=== PATIENT | female | born 1985 | race Caucasian/White ===

== ENCOUNTER 2023-07-29 10:40 | Outpatient (REF) | payer OTHER, SELFPAY ==
[2023-07-29 15:25] LABS: Alanine Aminotransferase 34 U/L (0-31); Albumin Level 3.9 g/dL (3.5-5.0); Alkaline Phosphatase 81 U/L (39-117); Aspartate Amino Transferase 33 U/L (5-31); Bilirubin Direct < 0.2 mg/dL (0.0-0.5); Bilirubin Total 0.2 mg/dL (0.0-1.0); Cholesterol 232 mg/dL (<200); HDL Cholesterol 34 mg/dL (>40); Total Protein 7.1 g/dL (6.5-8.0); Triglycerides 516 mg/dL (<150)
[2023-07-29 15:42] LABS: Thyroid Stimulating Hormone 3.87 uIU/mL (0.32-4.0)
== END 2023-07-29 10:41 | disposition home or self-care (01) ==
LOC: HO.CHCLDS 10:40
PROVIDERS: Visit Provider Student in an Organized Health Care Education/Training Program
DX: E03.9 Hypothyroidism, unspecified (principal)
CPT/HCPCS: 36415; 80061; 80076; 84443

== ENCOUNTER 2024-10-05 10:18 | Outpatient (REF) | payer OTHER, SELFPAY ==
--- OUTSIDE RECORDS SUMMARY | 2024-10-05 12:07 | XMS_ITS | Encounter Summary ---
Author Organization [employer] Address [address] [place] [address] Care Team Providers Care Clinical Science Consultant Name Role Phone Chari Rodriguez MD Primary Care Provider [phone] Encounter Details Date Type Department Care Team ([facility] st Contact Info) Description 10/05/2024 10:00 AM EDT Office Visit [facility] MED & PEDS [address] [place] [address] Chari Rodriguez MD [address] [place] [address] Insomnia, unspecified type (Primary Dx); Hypothyroidism, unspecified type Social History Tobacco Use Types Packs/Day Years Used Date Smoking Tobacco: Every Day Cigarettes Smokeless Tobacco: Never Alcohol Use Standard Drinks/Week Comments Never 0 (1 standard drink = 0.6 oz pur e alcohol) Depression Answer Date Recorded Patient Health Questionnaire-9 Score 13 10/05/2024 Patient Health Questionnaire-9 Score 13 10/05/2024 Last PHQ-9: Questionnaire Data Not on file 0 10/05/2024 Housing Stability Answer Date Recorded What is your housing situation today? I have danita tate [address] you li ve. Do you have problems with any of the following? None of the above 2023 Food Insecurity Answer Date Recorded Within the past 12 months, y ou worried that your food would run out before you got money to buy more: Never True 2023 Within the past 12 months,th e food you bought just didn't last and you didn't have enough money to get more: Never True Transportation Answer Date Recorded In the past 12 months, has l ack of transportation kept you from medical appts, meetings, work or from getting things needed for daily living? No 2023 Utilities Answer Date Recorded In the past 12 months, has t he electric, gas, oil or water company threatened to shut off services in your home? No 2023 Depression Answer Date Recorded Patient Health Questionnaire-2 Score 4 10/05/2024 Comments No Sex and Gender Information Value Date Recorded Sex Assigned at Female 05/05/2022 10:20 AM EDT Legal Sex Female 10:20 AM EDT Gender Identity Female 05/05/2022 10:20 AM EDT Sexual Orientation Straight 05/05/2022 10 :20 AM EDT documented as of this encounter Last Filed Vital Signs Vital Sign Reading Time Taken Comments Blood Pressure 124/80 10/05/2024 9:57 AM EDT Pulse 100 10/05/2024 9:57 AM EDT Temperature 36.4 ??C (97.5 ??F) 10/05/2024 9:57 AM ED T Respiratory Rate 20 10/05/2024 9:57 AM EDT Oxygen Saturation 98% 10/05/2024 9:57 AM EDT Inhaled Oxygen Concentration - - Weight 74.7 kg (164 lb 9.6 oz) 10/05/2024 9:57 A M EDT Height 160 cm (5' 3 ) 10/05/2024 9:57 AM EDT Body Mass Index 29.16 10/05/2024 9:57 AM EDT documented in this encounter Progress Notes * Chari Rodriguez MD - 10/05/2024 10:00 AM EDT Subjective Patient ID: Yamini Fitzgerald is a 39 y.o. female who presents for No chief complaint on file.. Insomnia This is a chronic problem. The problem has been gradually improving. Pertinent negatives include noabdominal pain, anorexia, arthralgias, change in bowel habit, chest pain, chills, congestion, coughing, diaphoresis, fatigue, fever, headaches, joint swelling, myalgias, nausea, neck pain or numbness. The symptoms are aggravated by stress. Treatments tried: trazodone. Review of Systems Constitutional: Negative for chills, diaphoresis, fatigue and fever. HENT: Negative for congestion. Respiratory: Negative for cough. Cardiovascular: Negative for chest pain. Gastrointestinal: Negative for abdominal pain, anorexia, change in bowel habit and nausea. Musculoskeletal: Negative for arthralgias, joint swelling, myalgias and neck pain. Neurological: Negative for numbness and headaches. Psychiatric/Behavioral: The patient has insomnia. Objective Physical Exam Constitutional: Appearance: Normal appearance. Cardiovascular: Rate and Rhythm: Normal rate and regular rhythm. Pulses: Normal pulses. Heart sounds: Normal heart sounds. Pulmonary: Effort: Pulmonary effort is normal. Abdominal: General: Abdomen is flat. Neurological: Mental Status: She is alert. Assessment/Plan Diagnoses and all orders for this visit: Insomnia, unspecified type Comments: Melatonin added to the regimen Cont Trazodone Educated about sleep hygiene Hypothyroidism, unspecified type - TSH with Reflex to Free T4; Future Other orders - melatonin 5 MG tablet; Take 1 tablet (5 mg) by mouth at bedtime. documented in this encounter Plan of Treatment Upcoming Encounters Date Type Department Care Team ([facility] st Contact Info) Description 10/26/2024 9:30 AM EDT Clinical Support [facility] MED & PEDS [address] [place] [address] Thania Hawkins RN [address] [place] [address] 12/28/2024 10:00 AM EDT Telemedicine [facility] MED & PEDS [address] [place] [address] Chari Rodriguez MD [address] [place] [address] Scheduled Orders Name Type Priority Associated Diagnoses Orde r Schedule TSH with Reflex to Free T4 Lab Routine Hypothyroidism, unspecified type Expected: 10/05/2024 (Approximate), Expires: 10/05/2025 documented as of this encounter Visit Diagnoses Diagnosis Insomnia, unspecified type- Primary Hypothyroidism, unspecified type documented in this encounter Additional Health Concerns Assessment Noted Time PHQ-9 Depression Total Score: 13 10/05/ 025 9:59 AM EDT documented as of this encounter Care Teams Clinical Science Consultant Relationship Specialty Start Date End Date Chari Rodriguez MD [address] [place] [address] PCP - General Family Medicine 05/19/12 documented as of this encounter
--- OUTSIDE RECORDS SUMMARY | 2024-10-05 12:07 | XMS_ITS | Encounter Summary ---
Author Organization [employer] Address [address] [place] [address] Care Team Providers Care Nurse Ldr Name Role Phone Chari Rodriguez MD Primary Care Provider [phone] Reason for Visit * Reason Onset Date Comments Med Refill 08/16/2024 Encounter Details Date Type Department Care Team ([facility] st Contact Info) Description 08/16/2024 Telephone [facility] MEDICINE [address] [place] [address] Chari Rodriguez MD [address] [place], [place] [id number] Med Refill Social History Tobacco Use Types Packs/Day Years Used Date Smoking Tobacco: Every Day Cigarettes Smokeless Tobacco: Never Alcohol Use Standard Drinks/Week Comments Never 0 (1 standard drink = 0.6 oz pur e alcohol) Depression Answer Date Recorded Patient Health Questionnaire-9 Score 22 06/16/2024 Patient Health Questionnaire-9 Score 22 06/16/2024 Last PHQ-9: Questionnaire Data Not on file 1 08/17/2023 Housing Stability Answer Date Recorded What is [...] Answer Date Recorded Patient Health Questionnaire-2 Score 6 06/16/2024 Comments No Sex and Gender Information Value Date Recorded Sex Assigned at Female 05/05/2022 10:20 AM EDT Legal Sex Female 10:20 AM EDT Gender Identity Female 05/05/2022 10:20 AM EDT Sexual Orientation Straight 05/05/2022 10 :20 AM EDT documented as of this encounter Miscellaneous Notes * Telephone Encounter - Azra Brink - 08/16/2024 1:33 PM EST TC from pt requesting medication refill. Medications needing refill : traMADol (Ultram) 50 MG tablet To be sent to: [facility]/pharmacy [address] [place] [address] documented in this encounter Plan of Treatment Upcoming Encounters Date Type Department Care Team ([facility] st Contact Info) Description 10/26/2024 9:30 AM EDT Clinical Support [facility] MED & PEDS [address] [place] [address] Thania Hawkins RN [address] [place] [address] 12/28/2024 10:00 AM EDT Telemedicine [facility] MED & PEDS [address] [place] [address] Chari Rodriguez MD [address] [place] [address] documented as of this encounter Visit Diagnoses Not on filedocumented in this encounter Additional Health Concerns Assessment Noted Time PHQ-9 Depression Total Score: 22 024 11:04 AM EST documented as of this encounter Care Teams Nurse Ldr Relationship Specialty Start Date End Date Chari Rodriguez MD [address] [place] [id number] PCP - General Family Medicine 05/19/12 documented as of this encounter
--- OUTSIDE RECORDS SUMMARY | 2024-10-05 12:07 | XMS_ITS | Encounter Summary ---
Author Organization [employer] Address [address] [facility] [address] [facility] [address] [place] [address] Care Team Providers Care Dog Groomer Name Role Phone Chari Rodriguez MD Primary Care Provider [phone] Encounter Details Date Type Department Care Team (Late st Contact Info) Description 04/06/2024 Orders Only [facility] MED & PEDS [address] [place] [address] Provider, MD Darron Social History Tobacco Use Types Packs/Day Years Used Date Smoking Tobacco: Every Day Cigarettes Smokeless Tobacco: Never Alcohol Use Standard Drinks/Week Comments Never 0 (1 standard drink = 0.6 oz pur e alcohol) Depression Answer Date Recorded Patient Health Questionnaire-9 Score 22 07/29/2023 Patient Health Questionnaire-9 Score 22 07/29/2023 Last PHQ-9: Questionnaire Data Not on file 0 07/29/2023 Housing Stability Answer Date Recorded What is [...] Date Recorded Patient Health Questionnaire-2 Score 6 07/29/2023 Comments No Sex and Gender Information Value Date Recorded Sex Assigned at Female 05/05/2022 10:20 AM EDT Legal Sex Female 10:20 AM EDT Gender Identity Female 05/05/2022 10:20 AM EDT Sexual Orientation Straight 05/05/2022 10 :20 AM EDT documented as of this encounter Plan of Treatment Upcoming Encounters Date Type Department Care Team (Late st Contact Info) Description 10/26/2024 9:30 AM EDT Clinical Support [facility] MED & PEDS [address] [place] [address] Thania Hawkins RN [address] [place] [address] 12/28/2024 10:00 AM EDT Telemedicine [facility] MED & PEDS [address] [place] [address] Chari Rodriguez MD [address] [place] [address] documented as of this encounter Procedures Procedure Name Priority Date/Time Associated Diagnosis Comments HM PAP/HPV Routine 03/24/2024 12:20 PM EDT documented in this encounter Results * HM PAP/HPV (03/24/2024 12:20 PM EDT) us Historical Provider HEALTH MAINTENANCE Final Result documented in this encounter Visit Diagnoses Not on filedocumented in this encounter Additional Health Concerns Assessment Noted Time PHQ-9 Depression Total Score: 22 024 10:31 AM EST documented as of this encounter Care Teams Dog Groomer Relationship Specialty Start Date End Date Chari Rodriguez MD [address] [place] [address] PCP - General Family Medicine 05/19/12 documented as of this encounter
--- OUTSIDE RECORDS SUMMARY | 2024-10-05 12:08 | XMS_ITS | Clinical Summary ---
Author Organization [employer] Address [address] 7[address] [place] [address] Care Team Providers Care Magician Helper Name Role Phone Chari Rodriguez MD Primary Care Provider [phone] Allergies Active Allergy Reactions Criticality Noted Date Comments Sulfamethoxazole High 07/14/2016 Other reaction(s): Rash Sulfamethoxazole-Trimethoprim Hives,Rash Low 2021 Trimethoprim Rash High 07/14/2016 Medications * This document contains information received from the source organization and may not represent a complete record from that organization. betamethasone valerate (Valisone) 0.1 % ointmentIndica tions:Discoid lupus Apply topically if needed in the morning and at bedtime (dryness). 45 g 2 09/12/19 23 Active Blood Pressure kit Check blood pressure daily 1 kit 11/28/19 23 Active hydroxychloroq uine (Plaquenil) 200 MG tablet TAKE 1 TABLET (200 MG TOTAL) BY MOUTH 2 TIMES A DAY. 05/31/20 23 Active nicotine (Nicoderm, Step 3) 7 MG/24HR patch Place 1 patch on the skin in the morning. 30 patch 3 07/29/19 24 Active DULoxetine (Cymbalta) [address] capsule TAKE 1 CAPSULE BY MOUTH EVERY DAY 90 capsule 2 10/19/19 24 Active levothyroxine (Synthroid, Levoxyl) 50 MCG tabletIndicati ons:Hypothyroi dism, unspecified type TAKE 1 TABLET BY MOUTH EVERY DAY 90 tablet 1 05/25/20 24 Active acyclovir (Zovirax) 5 % ointment APPLY TOPICALLY 6 (SIX) TIMES A DAY. SPACE APPLICATIONS EVERY 3 HOURS. 30 g 3 05/30/20 24 Active SUMAtriptan (Imitrex) 100 MG tablet 06/09/20 24 Active simvastatin (Zocor) 10 MG tablet TAKE 1 TABLET BY MOUTH EVERYDAY AT BEDTIME 90 tablet 3 07/26/19 25 Active DULoxetine (Cymbalta) [address] capsule TAKE 1 CAPSULE BY MOUTH 2 TIMES DAILY. DO NOT CRUSH OR CHEW. 180 capsule 3 07/26/19 25 Active prazosin (Minipress) 2 MG capsule TAKE 1 CAPSULE BY MOUTH EVERYDAY AT BEDTIME 90 capsule 1 07/26/19 25 Active valACYclovir (Valtrex) 1 g tabletIndicati ons:Sore of lower lip TAKE 1 TABLET BY MOUTH TWICE A DAY FOR 10 DAYS 10 tablet 08/19/19 25 Active cyanocobalamin (Vitamin B-12) 1000 MCG tabletIndicati ons:Vitamin B12 deficiency TAKE 1 TABLET BY MOUTH IN THE MORNING DAILY. 90 tablet 11 08/23/19 25 Active traZODone (Desyrel) 50 MG tablet TAKE 1 TABLET BY MOUTH AT BEDTIME 90 tablet 09/13/19 25 Active traMADol (Ultram) 50 MG tabletIndicati ons:Fibromyalg ia Take 1 tablet (50 mg) by mouth every 8 (eight) hours if needed for severe pain for up to 28 days. 84 tablet 09/13/19 25 2024 Active nicotine (Nicoderm, Step 1) 21 MG/24HR patch Place 1 patch on the skin 1 (one) time each day at the same time. 30 patch 09/21/19 25 2025 Active nicotine (Nicoderm, Step 2) 14 MG/24HR patch Place 1 patch on the skin Once per day. 30 patch 09/21/19 25 2025 Active melatonin 5 MG tablet Take 1 tablet (5 mg) by mouth at bedtime. 30 tablet 11 10/06/19 25 2025 Active nicotine (Nicoderm, Step 1) 21 MG/24HR patch Place 1 patch on the skin 1 (one) time each day at the same time. 30 patch 07/29/19 24 2024 Discontinued(R eorder (will not trigger notification to Pharmacy)) nicotine (Nicoderm, Step 2) 14 MG/24HR patch Place 1 patch on the skin in the morning. 30 patch 07/29/19 24 2024 Discontinued(R eorder (will not trigger notification to Pharmacy)) traZODone (Desyrel) 50 MG tablet Take 1 tablet (50 mg) by mouth at bedtime. 30 tablet 2 06/16/20 24 2024 Discontinued traMADol (Ultram) 50 MG tabletIndicati ons:Fibromyalg ia Take 1 tablet (50 mg) by mouth every 8 (eight) hours if needed for severe pain for up to 28 days. 84 tablet 08/16/19 25 2024 Discontinued(R eorder (will not trigger notification to Pharmacy)) Active Problems Problem Noted Date Diagnosed Date Severe recurrent major depression with psychotic features 08/19/2022 Assessment & Plan (12/30/2022 11:36 AM EDT): Presented with significant cognitive deficits: Memory loss recent and distant. Mild passive SI. Differential includes congenital low cognition, substance exposure, sequelae of substance use (marijuana and Ecstasy), hypothyroidism, psychosis. Moderate auditory and visual hallucinations. Chronic pain now on Tramadol. Followed by Rheum but not Neurology. Memory seems to be improved (better mgt of thyroid disorder?). Auditory hallucinations persist. Will increase to Abilify 15 mg daily. For depression and chronic pain, will increase to Duloxetine 30 mg BID. Continue Mirtazapine 45 mg at bedtime. For nightmares, add Prazosin 1 mg at bedtim. F/u with therapist. When agency prescriber becomes available, may transfer care. Meanwhile, F/U with me in 4-6 weeks. She agrees with the plan. Assessment & Plan (08/19/2022 11:12 AM EST): With significant cognitive deficits: Memory loss recent and distant. Mild passive SI. Differential includes congenital low cognition, substance exposure, sequelae of substance use (marijuana and Ecstasy), hypothyroidism, psychosis. Moderate auditory and visual hallucinations. Chronic pain now on Tramadol. Followed by Rheum but not Neurology. At this time she will resume Abilify 10 mg daily, Duloxetine 20 mg BID. Continue Mirtazapine 45 mg at bedtime. Urged to F/u with therapist. Discuss with Dr. Rodriguez whether Neurologist referral would be appropriate. F/U with me in 3-4 weeks. Venous angioma of brain 06/02/2022 Discoid lupus 03/01/2020 Overview (07/13/2023): Last Assessment & Plan: I requested release of medical records including dermatological care and skin biopsy in addition to rheumatological care-last seen in 2019 and records from her doctor of naprapathy pertinent to Plaquenil administration. She also reported televisit with her PCP within couple of weeks and more recent lab work that I request for review and comparison. I explained to her that most of the time patients with discoid lupus have just skin involvement and do not progress to systemic lupus erythematosus (SLE) that as the name suggest involves multiple organ systems including musculoskeletal, cardiovascular, renal, nervous etc. I took the liberty of a new set of lab work to make sure that she does not have signs suggestive for systemic lupus erythematosus Provided she does not have laboratory signs suggestive for SLE at this time I have asked her to return in 6 months. She is free to call with any problems or questions in the interim. Importance of daily sun protection stressed particularly during spring and summer months. Gastroesophageal reflux disease without esophagi tis 11/24/2017 Pain of breast 06/04/2011 Tobacco dependence 06/04/2011 Overview (07/13/2023): Last Assessment & Plan: I have spent at least 3 minutes on encouraging her to work on complete smoking cessation by reducing number of cigarettes smoked daily by 1 cigarette every week and be ready for dealing with cravings by stocking finger size healthy snacks such as small carrots, cucumbers, celery sticks etc. I reviewed with her multiple ill effects of ongoing cigarette smoking including but not limited to increased risk of developing lung cancer, cervical cancer, bladder cancer, stroke and heart attack in addition to multiple cosmetic ill effects. She may try contacting her insurance agency manager versus PCPs office regarding help from cigarette smoking cessation specialist. She could not tolerate mood changes as she attempted to quit recently and would benefit from health it specialist help. Call 6-286-UUZN-NOW that is free service available nationally for people who struggle with cigarette smoking cessation. 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 Resolved Problems Problem Noted Date Diagnosed Date Resolved Date Depressive disorder 07/29/2010 08/19/19 23 Encounters Date Type Department Care Team Description 10/05/2024 10:00 AM EDT Office Visit [facility] [address] [place] [address] Chari Rodriguez MD Insomnia, unspecified type (Primary Dx); Hypothyroidism, unspecified type 10/05/2024 Travel 10/04/2024 Telephone [facility] [address] [place] [address] Chari Rodriguez MD Chart Prep 09/30/2024 Travel 09/30/2024 Telephone [facility] [address] [place] [address] Thania Hawkins, RN airplane tester 09/29/2024 Telephone [facility] [address] [place] [address] Thania Hawkins, RN 09/27/2024 Patient Outreach [facility] [address] [place] [address] Chari Rodriguez MD Pre-visit Planning (Pre visit planning unable to LVM ) 09/19/2024 Refill [facility] [address] [place] [address] Chari Rodriguez MD 09/12/2024 Telephone [facility] [address] [place] [address] Chari Rodriguez MD Med Refill 09/10/2024 Refill [facility] [address] [place] [address] Chari Rodriguez MD Fibromyalgia 09/09/2024 Refill [facility] [address] [place] [address] Chari Rodriguez MD Fibromyalgia 08/20/2024 Refill [facility] [address] [place] [address] Chari Rodriguez MD Vitamin B12 deficiency 08/17/2024 Refill [facility] [address] [place] [address] Chari Rodriguez MD Sore of lower lip 08/16/2024 Telephone [facility] [address] [place] [address] Chari Rodriguez MD Med Refill 08/15/2024 Refill [facility] [address] [place], [place] [phone] Chari Rodriguez MD Fibromyalgia 07/26/2024 Refill [facility] [address] [place] [address] Chari Rodriguez MD 07/25/2024 Refill [facility] [address] [place] [address] Chari Rodriguez MD 07/20/2024 10:30 AM EST Clinical Support [facility] [address] [place] [address] Thania Hawkins, ALON Other chronic pain 07/20/2024 Telephone [facility] [address] [place] [address] Thania Hawkins, ALON 07/20/2024 Travel 07/17/2024 Refill [facility] [address] [place] [address] Chari Rodriguez MD Fibromyalgia from Last 3 Months Immunizations Name Administration Dates Next Due Influenza Injectable Quadriv alant Preservative Free IIV4 MDCK 08/22/2022 Influenza injectable quadrivalent preservative f ree 06/30/2023 Influenza, IIV3, injectable 03/14/2014 Influenza, Injectable, MDCK, preservative free 0 03/22/2024 Pfizer Covid-19 Vaccine 12+ 11/30/2020 Pneumococcal Conjugate PCV 20 03/22/2024 TD (adult), 2 Lf tetanus tox oid, preservative free, adsorbed 09/16/2006,05/22/2005 Tdap 07/29/2023 Social History Tobacco Use Types Packs/Day Years Used Date Smoking Tobacco: Every Day Cigarettes Smokeless Tobacco: Never Tobacco Cessation:Ready to Q uit: Not Asked; Counseling Given: Not Answered Alcohol Use Standard Drinks/Week Comments Never 0 [...] Orientation Straight 05/05/2022 10 :20 AM EDT Last Filed Vital Signs Vital Sign Reading [...] Mass Index 29.16 10/05/2024 9:57 AM EDT Plan of Treatment Upcoming Encounters Date Type Department Care Team (Late st Contact Info) Description 10/26/2024 9:30 AM EDT Clinical Support [facility] [address] [place] [address] Thania Hawkins RN [address] [place] [address] 12/28/2024 10:00 AM EDT Telemedicine [facility] [address] [facility] [place] [address] Chari Rodriguez MD [address] [place] [address] Health Maintenance Due Date Last Done Comments Family Planning (PISQ) 1998 Hepatitis B Vaccines (1 of 3 - 19+ 3-dose series) 2002 03/14/2024 HPV/Cotest 2013 Mammogram 2023 SDOH Screening 07/21/2024 07/21/2023 Depression Monitoring (PHQ-9) 04/06/2025 10/05/2024, 10/05/2024 Tobacco Screening 06/16/2025 06/16/2024 Alcohol/Substance Use Screening 10/05/2025 10/05/2024 Depression Screening 10/05/2025 10/05/2024, 10/06/19 Cervical Cancer Screening 03/24/2027 Pap Smear 03/24/2027 03/24/2024, 02/25/2013 Lipid Panel 07/29/2028 07/29/2023, 10/10/2020 Zoster Vaccines (1 of 2) 2033 DTaP/Tdap/Td Vaccines (2 - Td or Tdap) 07/29/2033 07/29/2023, 09/16/2006, 05/22/2005 RSV Patients and Patients Aged 60 years or older (1 - 1-dose 75+ series) 2058 HIV Screening Completed 09/26/2019 Hepatitis C Screening Completed 09/26/2019 COVID-19 Vaccine Completed 03/22/2024, , 11/30/2020 Influenza Vaccine Completed 03/22/2024, , 08/22/2022, Additional history exists Pneumococcal Vaccine: Pediatrics (0 to 5 Years) and At-Risk Patients (6 to 49) Years) Completed 03/22/2024 HIB Vaccines Aged Out No longer eligi ble based on patient's age to complete this topic HPV Vaccines Aged Out No longer eligi ble based on patient's age to complete this topic Hepatitis A Vaccines Aged Out No long er eligible based on patient's age to complete this topic IPV Vaccines Aged Out No longer eligi ble based on patient's age to complete this topic Meningococcal Vaccine Aged Out No solis mayra eligible based on patient's age to complete this topic RSV under 20 months Aged Out No longe r eligible based on patient's age to complete this topic Rotavirus Vaccines Aged Out No longer eligible based on patient's age to complete this topic Procedures Procedure Name Priority Date/Time Associated Diagnosis Comments POCT FREYA-14 URINE DRUG SCREEN Routine 07/20/2024 10:47 AM EST Other chronic pain HM PAP/HPV Routine 03/24/2024 12:20 PM EDT LIPID PANEL, STANDARD Routine 07/29/2023 10:47 AM EST Hypothyroidism, unspecified type ZZZ HISTORICAL HEPATITIS C ANTIBODY Routine 09/26/2019 12:52 PM EDT ZZZ HISTORICAL HIV AB/AG Routine 09/26/2019 12:52 PM EDT from Last 3 Months or Most Recently Relevant to Health Maintenance Results * POCT FREYA-14 Urine Drug Screen (07/20/2024 10:47 AM EST) Urine Urine specimen obtained by clean catch procedure / Unknown 07/20/2024 10:47 AM EST Narrative Thania Hawkins, ALON - 07/20/2024 10:47 AM EST negative for THC, MOP, OXY, EDWIN, MET, AMP, BZO, BAR, MTD, BUPG, TCA, MDMA, PCP, PPX. Lot# [id number] Exp: 06-11-25 Chari Rodriguez MD POINT OF CARE TEST ENTER/EDIT OR DERABLES Final Result * HM PAP/HPV (03/24/2024 12:20 PM EDT) Historical Provider HEALTH MAINTENANCE Final Result * (ABNORMAL) Lipid Panel, Standard (07/29/2023 10:47 AM EST) Triglycerides 516(H) <150 mg/dL [facility] Comment:Desirable Triglyceri de: less than 150 mg/dLBorderline High Triglyceride 150-199 mg/dLHigh Triglyceride: 200-499 mg/dLVery High Triglyceride: greater than or equal to 5OO mg/dL Cholesterol 232(H) <200 mg/dL [facility] Comment:Desirable Cholestero l: less than 200 mg/dLBorderline High Cholesterol: 200-239 mg/dLHigh Cholesterol: greater than 239 mg/dL LDL Cholesterol Calculated TNP <100 mg/dL [facility] Comment:Unable to calculate the LDL. The formula of Friedwald,Gold, and Mitchel is only valid if the triglycerides areless than 400 mg/dl. HDL Cholesterol 34(L) >40 mg/dL [facility] Comment:Desirable HDL: great er than 40 mg/dL Note: This HDL assay may give artificially low results in patients with liver disease. Blood Venous blood specimen / Unknown 07/29/2023 10:47 AM EST 07/29/2023 2:55 PM EST Chari Rodriguez MD LAB BLOOD ORDERABLES Final Resul t [facility] [address] [place], [place] [phone] * HEPATITIS C ANTIBODY (09/26/2019 12:52 PM EDT) HEPATITIS C ANTIBODY NONREACTIVE NONREACTIVE [facility] Comment: Antibodies to HCV not detected; does not exclude early acute HCV infection. 09/26/2019 12:5 2 PM EDT Aston Kamara MD HISTORICAL/NON ORDERABLE LABS Fi nal Result Performing Organization Address [facility] de Phone Number [facility] [address] * HIV AB/AG (09/26/2019 12:52 PM EDT) [facility] HIV AG/AB NONREACTIVE [facility] Comment: HIV-1 p24 Ag and/or HIV-1/HIV-2 Ab not detected. ?? A test result that is nonreactive does not exclude the possibility of exposure to or infection with HIV-1 and/or HIV-2. Nonreactive results in this assay for individuals with prior exposure to HIV-1 and/or HIV-2 may be due to antigen and antibody levels that are below the limit of detection of this assay. ?? The Van[employer] Document Improvement Specialist HIV Ag/Ab Combo assay result and supplemental assay results should be interpreted in conjunction with the patient's clinical presentation, history and other laboratory results. ??If the results are inconsistent with clinical evidence, additional testing is suggested to confirm the result. 09/26/2019 12:5 2 PM EDT Aston Kamara MD HISTORICAL/NON ORDERABLE LABS Fi nal Result Performing Organization Address [facility] Phone Number [facility] [address] from Last 3 Months or Most Recently Relevant to Health Maintenance Insurance [address] [place] [address] [address] [facility] Care Teams Magician Helper Relationship Specialty Start Date End Date Chari Rodriguez MD [address] [place] [phone] PCP - General Family Medicine 05/19/12
--- OUTSIDE RECORDS SUMMARY | 2024-10-05 12:08 | XMS_ITS | Encounter Summary ---
Author Organization [employer] Address [address] [place] [address] Care Team Providers Care Concrete Rod Buster Name Role Phone Chari Rodriguez MD Primary Care Provider [phone] Encounter Details Date Type Department Care Team (Latest Contact Info) Description 10/05/2024 Travel Social History Tobacco Use Types Packs/Day Years [...] Description 10/26/2024 9:30 AM EDT Clinical Support [facility] [address] [place] [address] Tahnia Hawkins RN [address] [place] [address] 12/28/2024 10:00 AM EDT Telemedicine [facility] [address] [place] [address] Chari Rodriguez MD [address] [place] [address] documented as of this encounter Visit Diagnoses Not on filedocumented in this encounter Additional Health Concerns Assessment Noted Time PHQ-9 Depression Total Score: 13 025 9:59 AM EDT documented as of this encounter Care Teams Concrete Rod Buster Relationship Specialty Start Date End Date Chari Rodriguez MD [address] [place] [phone] PCP - General Family Medicine 05/19/12 documented as of this encounter
--- OUTSIDE RECORDS SUMMARY | 2024-10-05 12:08 | XMS_ITS | Encounter Summary ---
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 I have danitastacie tate [address] [...] encounter Miscellaneous Notes * Telephone Encounter - Thania Hawkins RN - 09/30/2024 10:31 AM EDT TC back to pt. JUMPBASTING MACHINE OPERATOR appt r/s to 10/26/24 @9:30am. documented in this encounter Plan of Treatment Upcoming Encounters Date Type Department Care Team (Late st Contact Info) Description 10/26/2024 9:30 AM EDT Clinical Support [facility] [address] [place] [address] Thania Hawkins RN [address] [place] [address] 12/28/2024 10:00 AM EDT Telemedicine [facility] [address] [place] [address] Chari Rodriguez MD [address] [place] [address] documented as of this encounter Visit Diagnoses Not on filedocumented in this encounter Additional Health Concerns Assessment Noted Time PHQ-9 Depression Total Score: 22 024 11:04 AM EST documented as of this encounter Care Teams Sewer Maintenance Supervisor Relationship Specialty Start Date End Date Chari Rodriguez MD [address] [place] [address] PCP - General Family Medicine 05/19/12 documented as of this encounter
--- OUTSIDE RECORDS SUMMARY | 2024-10-05 12:08 | XMS_ITS | Encounter Summary ---
Author Organization [employer] Address [address] [place] [address] Care Team Providers Care Consulting Services Manager Name Role Phone Chari Rodriguez MD Primary Care Provider [phone] Reason for Visit * Reason Onset Date Comments Med Refill 09/12/2024 Encounter Details Date Type Department Care Team ([facility] st Contact Info) Description 09/12/2024 Telephone [facility] [address] [place] [address] Chari Rodriguez MD [address] [place], [place] [phone] Med Refill Social History Tobacco Use Types [...] encounter Miscellaneous Notes * Telephone Encounter - Leonora Pritchard LPN - 09/13/2024 10:20 AM EDT Medication was filled 3.25 TC from pt requesting medication refill. Medications needing refill : traMADol (Ultram) 50 MG tablet To be sent to: [facility] [address] [place] [address] * Telephone Encounter - Alireza Lynch - 09/12/2024 3:25 PM EDT TC from pt requesting medication refill. Medications needing refill : traMADol (Ultram) 50 MG tablet To be sent to: [facility]pharmacy [address] [place] [address] documented in this encounter Plan of Treatment Upcoming Encounters Date Type Department Care Team ([facility] st Contact Info) Description 10/26/2024 9:30 AM EDT Clinical Support [facility] [address] [place] [address] Thania Hawkins, RN [address] [place] [address] 12/28/2024 10:00 AM EDT Telemedicine [facility] [address] [place] [address] Chari Rodriguez MD [address] [place] [address] documented as of this encounter Visit Diagnoses Diagnosis Fibromyalgia Unspecified myalgia and myositis documented in this encounter Additional Health Concerns Assessment Noted Time PHQ-9 Depression Total Score: 22 024 11:04 AM EST documented as of this encounter Care Teams Consulting Services Manager Relationship Specialty Start Date End Date Chari Rodriguez MD [address] [place] [id number] PCP - General Family Medicine 05/19/12 documented as of this encounter
--- OUTSIDE RECORDS SUMMARY | 2024-10-05 12:08 | XMS_ITS | Encounter Summary ---
Author Organization [employer] Address [address] [place] [address] Care Team Providers Care Leasing Representative Name Role Phone Chari Rodriguez MD Primary Care Provider [phone] Encounter Details Date Type Department Care Team ([facility] Contact Info) Description 09/29/2024 Telephone [facility] [address] [place] [address] Thania Hawkins, RN [address] [place] [address] Social History Tobacco Use Types Packs/Day Years [...] * Telephone Encounter - Azra Brink - 09/30/2024 10:06 AM EDT Tc from pt returning phone call. 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 TC to pt, unable to connect. documented in this encounter Plan of Treatment Upcoming Encounters Date Type Department Care Team (Late st Contact Info) Description 10/26/2024 9:30 AM EDT Clinical Support [facility] [address] [place] [address] Thania Hawkins RN [address] [place] [address] 12/28/2024 10:00 AM EDT Telemedicine [facility] [address] [place] [address] Chari Rodriguez MD [address] [place] [address] documented as of this encounter Visit Diagnoses Not on filedocumented in this encounter Additional Health Concerns Assessment Noted Time PHQ-9 Depression Total Score: 22 06/16/ 024 11:04 AM EST documented as of this encounter Care Teams Leasing Representative Relationship Specialty Start Date End Date Chari Rodriguez MD [address] [place] [address] PCP - General Family Medicine 05/19/12 documented as of this encounter
--- OUTSIDE RECORDS SUMMARY | 2024-10-05 12:08 | XMS_ITS | Encounter Summary ---
Author Organization [employer] Address [address] 7t [place] [address] Care Team Providers Care Banking Officer Name Role Phone Chari Rodriguez MD Primary Care Provider [phone] Reason for Visit * Reason Onset Date Comments Med Refill 02/08/2024 Encounter Details Date Type Department Care Team (Late st Contact Info) Description 02/08/2024 Refill [facility] MED[facility]INE [address] [place] [address] Chari Rodriguez MD [address] [place], [place] [id number] Sore of lower lip Social History Tobacco Use Types Packs/Day Years [...] Description 10/26/2024 9:30 AM EDT Clinical Support [facility] MED & PEDS 505 [place] [address] Thania Hawkins, RN 505 [place] [address] 12/28/2024 10:00 AM EDT Telemedicine [facility] MED & PEDS 505 [place] [address] Chari Rodriguez MD 505 [place] [address] documented as of this encounter Visit Diagnoses Diagnosis Sore of lower lip documented in this encounter Additional Health Concerns Assessment Noted Time PHQ-9 Depression Total Score: 22 024 10:31 AM EST documented as of this encounter Care Teams Banking Officer Relationship Specialty Start Date End Date Chari Rodriguez MD [address] [place] [address] PCP - General Family Medicine 05/19/12 documented as of this encounter
--- OUTSIDE RECORDS SUMMARY | 2024-10-05 12:08 | XMS_ITS | Encounter Summary ---
Author Organization [employer] Address [address] 7[address] [place] [address] Care Team Providers Care Postdoctoral Scientist Name Role Phone Chari Rodriguez MD Primary Care Provider [phone] Reason for Visit * Reason Onset Date Comments Chart Prep 10/04/2024 Encounter Details Date Type Department Care Team ([facility] st Contact Info) Description 10/04/2024 Telephone [facility] MED & PEDS 505 [place] [address] Chari Rodriguez MD 505 [place] [address] Chart Prep Social History Tobacco Use Types Packs/Day Years [...] encounter Miscellaneous Notes * Telephone Encounter - Guerda Moody [place] - 10/04/2024 2:07 PM EDT Chart Prep Labs: done Images: done Vaccines due: yes Referrals: complete Screenings: mammogram Overdue care gaps: SBIRT, SDOH, and PHQ-9 documented in this encounter Plan of Treatment Upcoming Encounters Date Type Department Care Team ([facility] st Contact Info) Description 10/26/2024 9:30 AM EDT Clinical Support [facility] MED & PEDS 505 [place] [address] Thania Hawkins RN 505 [place] [address] 12/28/2024 10:00 AM EDT Telemedicine [facility] MED & PEDS [address] [place] [address] Chari Rodriguez MD 505 [place] [address] documented as of this encounter Visit Diagnoses Not on filedocumented in this encounter Additional Health Concerns Assessment Noted Time PHQ-9 Depression Total Score: 22 024 11:04 AM EST documented as of this encounter Care Teams Postdoctoral Scientist Relationship Specialty Start Date End Date Chari Rodriguez MD [address] [place] [address] PCP - General Family Medicine 05/19/12 documented as of this encounter
--- OUTSIDE RECORDS SUMMARY | 2024-10-05 12:08 | XMS_ITS | Encounter Summary ---
Author Organization [employer] Address [address] 7t [place] [address] Care Team Providers Care Master Plumber Name Role Phone Chari Rodriguez MD Primary Care Provider [phone] Encounter Details Date Type Department Care Team ([facility] Contact Info) Description 10/03/2022 Orders Only [facility] CHC MED & PEDS 505 [place] [address] Obed Jalloh MD 505 [place] [address] Social History Tobacco Use Types Packs/Day Years Used Date Smoking Tobacco: Every Day Cigarettes Smokeless Tobacco: Never Alcohol Use Standard Drinks/Week Comments Never 0 (1 standard drink = 0.6 oz pur e alcohol) Comments Unknown Sex and Gender Information Value Date Recorded Sex Assigned at Female 05/05/2022 10:20 AM EDT Legal Sex Female 10:20 AM EDT Gender Identity Female 05/05/2022 10:20 AM EDT Sexual Orientation Straight 05/05/2022 10 :20 AM EDT COVID-19 Exposure Response Date Recorded In the last 10 days, have yo u been in contact with someone who was confirmed or suspected to have Coronavirus/COVID-19? No / Unsure 09/24/2022 2:00 PM EDT documented as of this encounter Plan of Treatment Upcoming Encounters Date Type Department Care Team ([facility] Contact Info) Description 10/26/2024 9:30 AM EDT Clinical Support [facility] MED & PEDS [address] [place] [address] Thania Hawkins, RN 505 [place] [address] 12/28/2024 10:00 AM EDT Telemedicine [facility] MED & PEDS [address] [place] [address] Chari Rodriguez MD 505 [place] [address] documented as of this encounter Visit Diagnoses Not on filedocumented in this encounter Additional Health Concerns Assessment Noted Time PHQ-9 Depression Total Score: 19 08/19/ 023 10:15 AM EST documented as of this encounter Care Teams Master Plumber Relationship Specialty Start Date End Date Chari Rodriguez MD [address] [place] [address] PCP - General Family Medicine 05/19/12 documented as of this encounter
--- OUTSIDE RECORDS SUMMARY | 2024-10-05 12:08 | XMS_ITS | Encounter Summary ---
Author Organization [employer] Address [address] 7t [place] [address] Care Team Providers Care Ux Visual Designer Name Role Phone Chari Rodriguez MD Primary Care Provider [phone] Encounter Details Date Type Department Care Team (Latest Contact Info) Description 09/30/2024 Travel Social History Tobacco Use Types Packs/Day [...] [facility] MED & PEDS 505 [place] [address] Thania Hawkins, RN 505 [place] [address] 12/28/2024 10:00 AM EDT Telemedicine [facility] MED & PEDS [address] [place] [address] Chari Rodriguez MD 505 [place] [address] documented as of this encounter Visit Diagnoses Not on filedocumented in this encounter Additional Health Concerns Assessment Noted Time PHQ-9 Depression Total Score: 22 024 11:04 AM EST documented as of this encounter Care Teams Ux Visual Designer Relationship Specialty Start Date End Date Chari Rodriguez MD [address] [place] [address] PCP - General Family Medicine 05/19/12 documented as of this encounter
--- OUTSIDE RECORDS SUMMARY | 2024-10-05 12:08 | XMS_ITS | Encounter Summary ---
Author Organization [employer] Address [address] 7[address] [place] [address] Care Team Providers Care Lightning Rod Erector Name Role Phone Chari Rodriguez MD Primary Care Provider [phone] Reason for Visit * Reason Comments Med Refill Encounter Details Date Type Department Care Team (Late st Contact Info) Description 01/25/2024 Refill [facility] [address] [place] [address] Chari Rodriguez MD [address] [place], [place] [phone] Sore of lower lip Social History Tobacco [...] Description 10/26/2024 9:30 AM EDT Clinical Support [facility] MED & PEDS 505 [place] [address] Thania Hawkins, ALON 505 [place] [address] 12/28/2024 10:00 AM EDT Telemedicine [facility] MED & PEDS 505 [place] [address] Chari oRdriguez MD 505 [place] [address] documented as of this encounter Visit Diagnoses Diagnosis Sore of lower lip documented in this encounter Additional Health Concerns Assessment Noted Time PHQ-9 Depression Total Score: 22 024 10:31 AM EST documented as of this encounter Care Teams Lightning Rod Erector Relationship Specialty Start Date End Date Chari Rodriguez MD [address] [place] [address] PCP - General Family Medicine 05/19/12 documented as of this encounter
--- OUTSIDE RECORDS SUMMARY | 2024-10-05 12:08 | XMS_ITS | Encounter Summary ---
Author Organization [employer] Address [address] [facility] 7t [place] [address] Care Team Providers Care Buck Presser Name Role Phone Chari Rodriguez MD Primary Care Provider [phone] Reason for Visit * Reason Comments Med Refill Encounter Details Date Type Department Care Team (Late Contact Info) Description 02/19/2023 Refill [facility] MED & PEDS [address] [place] [address] Chari Rodriguez MD 505 [place] [address] Sore of lower lip Social History Tobacco Use Types Packs/Day Years Used Date Smoking Tobacco: Every Day Cigarettes Smokeless Tobacco: Never Alcohol Use Standard Drinks/Week Comments Never 0 (1 standard drink = 0.6 oz pur e alcohol) Depression Answer Date Recorded Patient Health Questionnaire-9 Score 18 12/30/2022 Depression Answer Date Recorded Patient Health Questionnaire-2 Score 3 12/30/2022 Comments No Sex and Gender Information Value Date Recorded Sex Assigned at Female 05/05/2022 10:20 AM EDT Legal Sex Female 10:20 AM EDT Gender Identity Female 05/05/2022 10:20 AM EDT Sexual Orientation Straight 05/05/2022 10 :20 AM EDT documented as of this encounter Plan of Treatment Upcoming Encounters Date Type Department Care Team (Late Contact Info) Description 10/26/2024 9:30 AM EDT Clinical Support [facility] MED & PEDS [address] [place] [address] Thania Hawkins, RN 505 [place] [address] 12/28/2024 10:00 AM EDT Telemedicine [facility] MED & PEDS [address] [place] [address] Chari Rodriguez MD 505 [place] [address] documented as of this encounter Visit Diagnoses Diagnosis Sore of lower lip documented in this encounter Additional Health Concerns Assessment Noted Time PHQ-9 Depression Total Score: 18 023 10:15 AM EDT documented as of this encounter Care Teams Buck Presser Relationship Specialty Start Date End Date Chari Rodriguez MD [address] [place] [address] PCP - General Family Medicine 05/19/12 documented as of this encounter
--- OUTSIDE RECORDS SUMMARY | 2024-10-05 12:09 | XMS_ITS | Encounter Summary ---
Author Organization [employer] Address [address] [facility] [facility] [address] [facility] [address] 7t [place] [address] Care Team Providers Care Photocopier Technician Name Role Phone Chari Rodriguez MD Primary Care Provider Reason for Visit * Reason Onset Date Comments Med Refill 10/01/2023 Encounter Details Date Type Department Care Team (Late st Contact Info) Description 10/01/2023 Refill [facility] MEDICINE [address] [place] [address] Chari Rodriguez MD [address] [place], [place] [phone] Social History Tobacco Use Types Packs/Day Years Used Date Smoking Tobacco: Every Day Cigarettes Smokeless Tobacco: Never Alcohol Use Standard Drinks/Week Comments Never 0 (1 standard drink = 0.6 oz pur e alcohol) Depression Answer Date Recorded Patient Health Questionnaire-9 Score 07/29/2023 Patient Health Questionnaire-9 Score 22 07/29/2023 [...] Telephone Encounter - Thania Hawkins RN - 10/01/2023 9:27 AM EDT Radiologic Technologist checked 10/01/23. Can you please change pt sig, wouldn't let me and there's 2 different directions * Telephone Encounter - Ibeth Lay - 10/01/2023 8:46 AM EDT TC from pt requesting medication refill. Medications needing refill : traMADol (Ultram) 50 MG tablet To be sent to: [facility]/pharmacy #[id number] - [place] [id number] documented in this encounter Plan of Treatment Upcoming Encounters Date Type Department Care Team ([facility] st Contact Info) Description 10/26/2024 9:30 AM EDT Clinical Support [facility] MED [facility] PEDS 505 [place] [address] Thania Hawkins RN 505 [place] [address] 12/28/2024 10:00 AM EDT Telemedicine [facility] MED [facility] PEDS 505 [place] [address] Chari Rodriguez MD [address] [place] [address] documented as of this encounter Visit Diagnoses Not on filedocumented in this encounter Additional Health Concerns Assessment Noted Time PHQ-9 Depression Total Score: 22 024 10:31 AM EST documented as of this encounter Care Teams Photocopier Technician Relationship Specialty Start Date End Date Chari Rodriguez MD [address] [place] [address] PCP - General Family Medicine 05/19/12 documented as of this encounter
--- OUTSIDE RECORDS SUMMARY | 2024-10-05 12:09 | XMS_ITS | Encounter Summary ---
Author Organization [employer] Address [address] [facility] 7t [place] [address] Care Team Providers Care Registered Nurse Post Partum Name Role Phone Chari Rodriguez MD Primary Care Provider [phone] Reason for Visit * Reason Comments Med Refill Encounter Details Date Type Department Care Team ([facility] st Contact Info) Description 03/08/2024 Refill [facility] MED & PEDS [address] [place] [address] Chari Rodriguez MD 505 [place] [address] Hypothyroidism, unspecified type Social History Tobacco Use [...] Description 10/26/2024 9:30 AM EDT Clinical Support [facility] MED & PEDS [address] [place] [address] Thania Hawkins, RN 505 [place] [address] 12/28/2024 10:00 AM EDT Telemedicine [facility] MED & PEDS 505 [place] [address] Chari oRdriguez MD 505 [place] [address] documented as of this encounter Visit Diagnoses Diagnosis Hypothyroidism, unspecified type documented in this encounter Additional Health Concerns Assessment Noted Time PHQ-9 Depression Total Score: 22 024 10:31 AM EST documented as of this encounter Care Teams Registered Nurse Post Partum Relationship Specialty Start Date End Date Chari Rodriguez MD 230 [place] [address] PCP - General Family Medicine 05/19/12 documented as of this encounter
--- OUTSIDE RECORDS SUMMARY | 2024-10-05 12:09 | XMS_ITS | Encounter Summary ---
Author Organization [employer] Address [address] 7t [place] [address] Care Team Providers Care Acid Purification Equipment Operator Name Role Phone Chari Rodriguez MD Primary Care Provider [phone] Reason for Visit * Reason Onset Date Comments Medication Question 02/10/2024 Encounter Details Date Type Department Care Team ([facility] st Contact Info) Description 02/10/[address] [facility] MEDICINE 230 [place] [address] Chari Rodriguez MD 505 [place], [place] [phone] Medication Question Social History Tobacco Use Types Packs/Day Years [...] encounter Miscellaneous Notes * Telephone Encounter - Wing Juan M RN - 02/11/2024 11:11 AM EDT Please advise on tramadol, 50 mg prescription written on 02/09. Called pt's pharmacy and spoke to Kylah who stated they need a new script to say to take tramadol 3 times a day as that is what the pt reported to be usually taking. * Telephone Encounter - Ector Boland - 02/11/2024 8:38 AM EDT Tc from pt requesting status on message above. Pt is requesting a call from ALON Monteiro in regards to the Medication * Telephone Encounter - Jaret Briones - 02/10/2024 10:45 AM EDT Tc from patient calling in regards to the medication traMADol (Ultram) 50 MG tablet has received message by pharmacy and was told unable to fill pathology transcriptionist was informed by pharmacist it needed to be corrected states has 2 set of directions documented in this encounter Plan of Treatment Upcoming Encounters Date Type Department Care Team (Late st Contact Info) Description 10/26/2024 9:30 AM EDT Clinical Support [facility] MED & PEDS 505 [place] [address] Thania Hawkins RN 505 [place] [address] 12/28/2024 10:00 AM EDT Telemedicine [facility] MED & PEDS 505 [place] [address] Chari Rodriguez MD 505 [place] [address] documented as of this encounter Visit Diagnoses Diagnosis Fibromyalgia Unspecified myalgia and myositis documented in this encounter Additional Health Concerns Assessment Noted Time PHQ-9 Depression Total Score: 22 024 10:31 AM EST documented as of this encounter Care Teams Acid Purification Equipment Operator Relationship Specialty Start Date End Date Chari Rodriguez MD [address] [place] [address] PCP - General Family Medicine 05/19/12 documented as of this encounter
--- OUTSIDE RECORDS SUMMARY | 2024-10-05 12:09 | XMS_ITS | Encounter Summary ---
Author Organization [employer] Address [address] 7t [place] [address] Care Team Providers Care Audit Analyst Name Role Phone Chari Rodriguez MD Primary Care Provider [phone] Reason for Visit * Reason Onset Date Comments Medication Question 04/15/2023 Encounter Details Date Type Department Care Team ([facility] Contact Info) Description 04/15/[address] [facility] CH[facility] MED & PEDS 505 [place] [address] Chari Rodriguez MD 505 [place] [address] Medication Question Social History Tobacco Use Types Packs/Day Years Used Date Smoking Tobacco: Every Day Cigarettes Smokeless Tobacco: Never Alcohol Use Standard Drinks/Week Comments Never 0 (1 standard drink = 0.6 oz pur e alcohol) Depression Answer Date Recorded Patient Health Questionnaire-9 Score 18 12/30/2022 Housing Stability Answer Date Recorded What is your housing situation today? I have danita tate 04/13/[address] you li ve. Do you have problems with any of the following? None of the above 04/13/2023 Food Insecurity Answer Date Recorded Within the past 12 months, y ou worried that your food would run out before you got money to buy more: Never True 04/13/2023 Within the past 12 months,th e food you bought just didn't last and you didn't have enough money to get more: Never True 03/2023 Transportation Answer Date Recorded In the past 12 months, has l ack of transportation kept you from medical appts, meetings, work or from getting things needed for daily living? No 04/13/2023 Utilities Answer Date Recorded In the past 12 months, has t he electric, gas, oil or water company threatened to shut off services in your home? No 04/13/2023 Depression Answer Date Recorded Patient Health Questionnaire-2 Score 3 12/30/2022 Comments No Sex and Gender Information Value Date Recorded Sex Assigned at Female 05/05/2022 10:20 AM EDT Legal Sex Female 10:20 AM EDT Gender Identity Female 05/05/2022 10:20 AM EDT Sexual Orientation Straight 05/05/2022 10 :20 AM EDT documented as of this encounter Miscellaneous Notes * Telephone Encounter - Thania Cope RN - 04/15/2023 11:55 AM EDT TC to pt regarding message below. Ok per PCP to resend Tramadol rx to be filled today. Pt notifed, verbalized understanding. * Telephone Encounter - Angela Gonzales - 04/15/2023 10:26 AM EDT Tc from patient calling in regards to medication tramadol 50 mg. States she has a script due for 04/17/23 but needs script today (04/15/23) due to a in her family and she needs to travel to [facility] by car. documented in this encounter Plan of Treatment Upcoming Encounters Date Type Department Care Team (Late st Contact Info) Description 10/26/2024 9:30 AM EDT Clinical Support [facility] MED & PEDS [address] [place] [address] Thania Hawkins RN 505 [place] [address] 12/28/2024 10:00 AM EDT Telemedicine [facility] MED & PEDS [address] [place] [address] Chari Rodriguez MD [address] [place] [address] documented as of this encounter Visit Diagnoses Diagnosis Other chronic pain documented in this encounter Additional Health Concerns Assessment Noted Time PHQ-9 Depression Total Score: 18 023 10:15 AM EDT documented as of this encounter Care Teams Audit Analyst Relationship Specialty Start Date End Date Chari Rodriguez MD [address] [place] [address] PCP - General Family Medicine 05/19/12 documented as of this encounter
--- OUTSIDE RECORDS SUMMARY | 2024-10-05 12:09 | XMS_ITS | Encounter Summary ---
Author Organization [employer] Address [address] 7t [place] [address] Care Team Providers Care Deboner Name Role Phone Chari Rodrigeuz MD Primary Care Provider [phone] Encounter Details Date Type Department Care Team (Late Contact Info) Description 09/01/2022 Orders Only [facility] CHC MED & PEDS [address] [place] [address] Chari Rodriguez MD 505 [place] [address] Social History Tobacco Use Types Packs/Day Years [...] Description 10/26/2024 9:30 AM EDT Clinical Support [facility] MED & PEDS 505 [place] [address] Thania Hawkins RN 505 [place] [address] 12/28/2024 10:00 AM EDT Telemedicine [facility] CHC MED & PEDS [address] [place] [address] Chari Rodriguez MD [address] [place] [address] documented as of this encounter Visit Diagnoses Not on filedocumented in this encounter Additional Health Concerns Assessment Noted Time PHQ-9 Depression Total Score: 19 023 10:15 AM EST documented as of this encounter Care Teams Deboner Relationship Specialty Start Date End Date Chari Rodriguez MD [address] [place] [address] PCP - General Family Medicine 05/19/12 documented as of this encounter
--- OUTSIDE RECORDS SUMMARY | 2024-10-05 12:09 | XMS_ITS | Encounter Summary ---
Author Organization [employer] Address [address] [place] [address] Care Team Providers Care Dining Services Manager Name Role Phone Chari Rodriguez MD Primary Care Provider [phone] Encounter Details Date Type Department Care Team ([facility] st Contact Info) Description 04/04/2024 Orders Only [facility] CH[facility] MED & PEDS [address] [place] [address] Chari Rodriguez MD 505 [place] [address] Social History Tobacco Use Types Packs/Day Years [...] Description 10/26/2024 9:30 AM EDT Clinical Support [facility] MED & PEDS [address] [place] [address] Thania Hawkins, RN 505 [place] [address] 12/28/2024 10:00 AM EDT Telemedicine [facility] MED & PEDS [address] [place] [address] Chari Rodriguez MD 505 [place] [address] documented as of this encounter Visit Diagnoses Not on filedocumented in this encounter Additional Health Concerns Assessment Noted Time PHQ-9 Depression Total Score: 22 024 10:31 AM EST documented as of this encounter Care Teams Dining Services Manager Relationship Specialty Start Date End Date Chari Rodriguez MD [address] [place] [address] PCP - General Family Medicine 05/19/12 documented as of this encounter
--- OUTSIDE RECORDS SUMMARY | 2024-10-05 12:09 | XMS_ITS | Encounter Summary ---
Author Organization [employer] Address [address] [facility] 7t [place] [address] Care Team Providers Care Scow Captain Name Role Phone Chari Rodriguez MD Primary Care Provider [phone] Reason for Visit * Reason Onset Date Comments Med Refill 09/07/2023 Encounter Details Date Type Department Care Team ([facility] st Contact Info) Description 09/07/2023 Refill [facility] MED & PEDS [address] [place] [address] Chari Rodriguez MD [address] [place] [address] Other chronic pain Social History Tobacco Use Types Packs/Day Years [...] Description 10/26/2024 9:30 AM EDT Clinical Support [facility] MED & PEDS [address] [place] [address] Thania Hawkins, RN 505 [place] [address] 12/28/2024 10:00 AM EDT Telemedicine [facility] MED & PEDS [address] [place] [address] Chari Rodriguez MD [address] [place] [address] documented as of this encounter Visit Diagnoses Diagnosis Other chronic pain documented in this encounter Additional Health Concerns Assessment Noted Time PHQ-9 Depression Total Score: 22 024 10:31 AM EST documented as of this encounter Care Teams Scow Captain Relationship Specialty Start Date End Date Chari Rodriguez MD [address] [place] [address] PCP - General Family Medicine 05/19/12 documented as of this encounter
--- OUTSIDE RECORDS SUMMARY | 2024-10-05 12:09 | XMS_ITS | Data Portability ---
Author Organization [employer] [facility], [place] - [employer] Address [address] [place] [id number] Care Team Providers Care Monument Mason Name Role Phone [facility] OTHER [facility] OTHER Assessment No assessment recorded. Plan of Treatment Reminders Order Date Submit Date Provider Last Modified By Organization Details Last Modified Time Details Appointments None recorded. Lab None recorded. Referral None recorded. Procedures None recorded. Surgeries None recorded. Imaging None recorded. Medication Orders ondansetron 4 mg disintegrat ing tablet 2023 024 Not available 15:45:16 ondansetron 4 mg disintegrat ing tablet 2023 024 [facility]/Pharmacy #[id number], [address] [place], [address], 4 15:45:17 Patient TargetsNo targets recorded. Patient InstructionsNo instructions recorded. Reason for Referral None Reported. Medical Equipment None Reported. Medications Name Sig Start Date Stop Date Status Note LastModified by Organization Details LastModified Time prednisone 10 mg tablet TAKE 5 TABS DAILY FOR 3 DAYS, THEN 4 TABS DAILY FOR 3 DAYS, THEN 3 TABS DAILY FOR 3 DAYS, THEN 2 TABS DAILY FOR 3 DAYS, THEN 1 TAB DAILY FOR 3 DAYS active Not Available Not Available N ot Available nicotine 14 mg/[address] patch [address] 1 PATCH ON THE SKIN IN THE MORNING active Not Available Not Available Not Available valacyclovir 1 gram tablet TAKE 1 TABLET BY MOUTH TWICE A DAY FOR 10 DAYS active Not Available Not Available No t Available prazosin 1 mg capsule TAKE 2 CAPSULES BY MOUTH EVERY NIGHT active Not Available Not Available No t Available meloxicam 15 mg tablet TAKE 1 TABLET BY MOUTH EVERY DAY active Not Available Not Available No t Available sumatriptan 25 mg tablet PLEASE SEE ATTACHED FOR DETAILED DIRECTIONS active Not Available Not Available N ot Available simvastatin 10 mg tablet TAKE 1 TABLET BY MOUTH EVERYDAY AT BEDTIME active Not Available Not Available No t Available cyanocobalam in (vit B-12) 1,000 mcg tablet TAKE 1 TABLET BY MOUTH IN THE MORNING DAILY. active Not Available Not Available No t Available minoxidil 2.5 mg tablet TAKE 1/2 TABLET BY MOUTH ONCE DAILY active Not Available Not Available No t Available tramadol 50 mg tablet TAKE 1 TABLET BY MOUTH EVERY 8 HOURS NEEDED FOR SEVERE PAIN FOR UP TO 28 DAYS active Not Available Not Available No t Available ketorolac 10 mg tablet TAKE 1 TABLET BY MOUTH EVERY 6 HOURS NEEDED FOR MODERATE PAIN FOR UP TO 5 DAYS active Not Available Not Available No t Available methocarbamo l 750 mg tablet TAKE 1 TABLET BY MOUTH 4 TIMES A DAY FOR 10 DAYS active Not Available Not Available Not Available levothyroxin e 50 mcg tablet TAKE 1 TABLET BY MOUTH EVERY DAY active Not Available Not Available No t Available nicotine 21 mg/[address] daily [address]dermal patch PLACE 1 PATCH ON THE SKIN 1 TIME EACH DAY AT THE SAME TIME. active Not Available Not Available N ot Available mirtazapine 45 mg tablet TAKE 1 TABLET BY MOUTH EVERYDAY AT BEDTIME active Not Available Not Available No t Available hydroxychlor oquine 200 mg tablet TAKE 1 TABLET (200 MG TOTAL) BY MOUTH 2 TIMES A DAY. active Not Available Not Available No t Available ondansetron 4 mg disintegrati ng tablet PLACE 1 TABLET BY TRANSLINGUA L ROUTE active Not Available Not Available No t Available prazosin 2 mg capsule TAKE 1 CAPSULE BY MOUTH AT BEDTIME active Not Available Not Available No t Available amoxicillin 875 mg-potassium clavulanate 125 mg tablet TAKE 1 TABLET BY MOUTH TWO TIMES A DAY active Not Available Not Available Not Available nicotine 7 mg/24 hr daily transdermal patch PLACE 1 PATCH ON THE SKIN IN THE MORNING active Not Available Not Available Not Available aripiprazole 15 mg tablet TAKE 1 TABLET BY MOUTH EVERY DAY active Not Available Not Available No t Available duloxetine 20 mg capsule,best yed release TAKE 1 CAPSULE BY MOUTH 2 TIMES DAILY. DO NOT CRUSH OR CHEW. active Not Available Not Available No t Available duloxetine 30 mg capsule,best yed release TAKE 1 CAPSULE BY MOUTH TWICE A DAY active Not Available Not Available No t Available Vitals Date Recorded Respiratory rate Oxygen saturation Oxygen saturation in Arterial blood by Pulse oximetry Heart rate Systolic blood pressure Diastolic blood pressure Provider Name and Address Organization Details Last Updated DateTime 4 16 /min 98 % 98 % 86 /min 138 mm[Hg] 76 mm[Hg] Not Available [facility] - production 4 15:42:55 Social History None recorded. Functional Status None recorded. Mental Status None recorded. Family History Nothing Reported. Medical History No medical history recorded. Gynecological HistoryNo gynecological history recorded. Obstetrics History GPAL:G 0 P 0 0 0 0 Past Encounters Encounter ID Performer Location Encounter Start Date Encounter Closed Date Diagnosis/Indication Diagnosis SNOMED-CT Code Diagnosis ICD10 Code Diagnosis Note [id number] Elisha Valenzuela MD [facility] - [facility] [address] [place] [phone] 12/04/2023 15:42:51 12/04/2023 21:26:19 Nausea 429920903 R11.0 38 year old female with SLE, being evaluated for nausea for the last 2 days. Patient reports having episodes of this in the past, previously resolved with oral antiemetic s. Patient denies vomiting, is able to eat and drink, denies abdominal pain or abnormal stools, fever/chil ls, new headache, and reports a is impossible . Exam notable for normal vital signs. Presentati on consistent with chronic intermitte nt nausea of unclear etiology, no red flags or concern for or impaired PO intake. Zofran administer ed and prescribed . FU outpatient team for long-term management and work up if indicated. I have reviewed and agree with the assessment and plan as documented by the health education coordinator. I provided real-time medical direction for this encounter and was immediatel y available to provide additional phone-base d assistance as needed. We discussed the diagnostic uncertaint y of home visits and associated risks. We discussed the need to seek care urgently/e mergently in the setting of any new or worsening symptoms. Health Concerns Section Related Observation LastModified by Organization Detai ls LastModified Time None Recorded Concern Status LastModified by Organization Details LastModified Time None Recorded Advance Directives Directive None Recorded Payers Encounter Date Sequence Insurance Name Policy Number Policy Martinez Covered Member ID Martinez Member ID Guarantor Name 12/04/2023 1 [facility] - DOS ON OR AFTER 2022 - DUAL ELIGIBLE - ALF OPTIONS AND ONE CARE (MEDICARE REPLACEMENT/AD VANTAGE - HMO) Yamini Ac [id number] Yamini Ac Notes Date Note Type Note Provider Name and Address Organization Details Recorded Time 12/04/2023 text/html HPI: Nurse is calling from [employer] Member has nausea times 2 days, no epi gastric pain , no fever, no vomiting. Member is just looking for an antiemeticNo no h/o nausea / GI issues in the past PMH Venous angio of brain 2021/ GERD/ andre/ smokes/ depression .................. .................. .................. .................. .................. .................. .................. ............... CRC Nurse Triage Notes (Lidia Hawthorne): Comments: CRC transcribed .................. .................. .................. .................. .................. .................. .................. ............... Inspector Balance Truing Note From Yuriy Glass: Dispatched to the call address for a female pt. with nausea wanting to be prescribed an anti-emetic. pt. was found alert and oriented x3 sitting in living room. pt. noted she had been nauseous for 2 days from Lupus and had attempted Pepto-Bismol and other techniques but was still feeling sick. pt. noted no diarrhea no vomiting and that she had still been able to eat and drink. pt. also noted a headache but was normal since being diagnosed with Lupus. pt. noted no allergies to medications and that she had taken zofran before and was looking for a prescription as well as a one time dose now. pt.-vitals on scene. pt. -chest pain -sob -dizziness -abd pain -vomiting -diarrhea -stroke scale findings no chance that the pt. is normal bowel movements no urinary symptoms. [facility] contacted and ordered 4mg zofran PO on time dose and that she would call in a prescription for her at her pharmacy. Pt. advised of red flag warnings and possible side effects of the medication and if she noticed any allergy symptoms to call 911. all times are approxreport completed by oliver glass. .................. .................. .................. .................. .................. .................. .................. ............... Disposition: Fulfilled Elisha Valenzuela MD [address] [facility],[address], [place], [phone], [place] [employer] 12/04/2023 15:57:49 OBGyn Episode No OBEpisode recorded.
--- OUTSIDE RECORDS SUMMARY | 2024-10-05 12:09 | XMS_ITS | Encounter Summary ---
Author Organization [employer] Address [address] [place] [address] Care Team Providers Care Supervisor [employer] Name Role Phone Chari Rodriguez MD Primary Care Provider [phone] Reason for Visit * Reason Onset Date Comments Nurse Triage 06/25/2023 Encounter Details Date Type Department Care Team ([facility] st Contact Info) Description 06/25/2023 Telephone [facility] MEDICINE [address] [place] [address] Chari Rodriguez MD [address] [place], [place] [phone] Nurse Triage Social History Tobacco Use Types Packs/Day Years [...] encounter Miscellaneous Notes * Telephone Encounter - Karen King RN - 06/25/2023 11:16 AM EST called pt to triage, spoke to pt. pt states seen ER at [facility] on 06/25 for left headache that radiatesto her left eye for 4 days. pt states was seen but signed out before the CT scan that was ordered due to how busy it was and fear of aissatou something. pt states the pain calmed down in the ER but still having some dull pain and pressure in the left head and behind the left eye. advised home care: rest, fluids, cool compresses, OTC pain reliever as needed, and call back if worsening or new concerns. given appt tomorrow with [facility] at 9:40 for exam and recheck. pt understands and agrees with plan. insurance verified. Protocol Used: Headache (Adult) Protocol-Based Disposition: See in Office or Video Visit Today or Tomorrow Video visit offer not recorded Positive Triage Question: * Unexplained headache that is present > 24 hours * All higher-acuity triage questions were negative Care Advice Discussed: * Reassurance and Education - Migraine Headache * Reassurance and Education - Muscle Tension Headache * Pain Medicines * Pain Medicines - Extra Notes and Warnings * Pain Medicine for Migraine * Rest for Headache * Cold Pack for Headache * Stretching * Reasons To Call Back - Severe headache persists over 2 hours after pain medicine - Headache lasts over 24 hours despite using a pain medicine - You become worse * Telephone Encounter - Jaret Anselmo - 06/25/2023 9:56 AM EST Patient calling to report ED visit on : Date: 06/24 Hospital: [facility] Seen for: Left eye pain and head Patient advised will forward to team nurse for follow up Symptom: Eye Pain - Not From Injury Outcome: Schedule an urgent appointment (within 4 hours) or talk to a nurse or provider soon Reason: Started within the past 3 days The caller accepted this outcome documented in this encounter Plan of Treatment Upcoming Encounters Date Type Department Care Team ([facility] st Contact Info) Description 10/26/2024 9:30 AM EDT Clinical Support [facility] MED & PEDS [address] [place] [address] Thania Hawkins RN [address] [place] [address] 12/28/2024 10:00 AM EDT Telemedicine [facility] [address] [place] [address] Chari Rodriguez MD [address] [place] [address] documented as of this encounter Visit Diagnoses Not on filedocumented in this encounter Additional Health Concerns Assessment Noted Time PHQ-9 Depression Total Score: 18 12/30/ 023 10:15 AM EDT documented as of this encounter Care Teams Supervisor [employer] Relationship Specialty Start Date End Date Chari Rodriguez MD [address] [place] [address] PCP - General Family Medicine 05/19/12 documented as of this encounter
--- OUTSIDE RECORDS SUMMARY | 2024-10-05 12:09 | XMS_ITS | Encounter Summary ---
Author Organization [employer] Address [address] [place] [address] Care Team Providers Care Machinist Linotype Name Role Phone Chari Rodriguez MD Primary Care Provider [phone] Reason for Visit * Reason Onset Date Comments Med Refill 09/26/2022 Encounter Details Date Type Department Care Team ([facility] st Contact Info) Description 09/26/2022 Refill [facility] MED & PEDS [address] [place] [address] Chari Rodriguez MD [address] [place] [address] Other chronic pain Social History Tobacco Use [...] PM EDT documented as of this encounter Miscellaneous Notes * Telephone Encounter - Angela Gonzales - 09/29/2022 9:54 AM EDT Tc from patient calling on the status of medication tramadol 50 mg. * Telephone Encounter - Yen Calderon - 09/26/2022 2:14 PM EDT Tc from pt requesting med refill for medication traMADol (Ultram) 50 MG tablet. documented in this encounter Plan of Treatment Upcoming Encounters Date Type Department Care Team (Late st Contact Info) Description 10/26/2024 9:30 AM EDT Clinical Support [facility] MED & PEDS [address] [place] [address] Thania Hawkins RN [address] [place] [address] 12/28/2024 10:00 AM EDT Telemedicine [facility] MED & PEDS [address] [place] [address] Chari Rodriguez MD [address] [place] [address] documented as of this encounter Visit Diagnoses Diagnosis Other chronic pain documented in this encounter Additional Health Concerns Assessment Noted Time PHQ-9 Depression Total Score: 19 023 10:15 AM EST documented as of this encounter Care Teams Machinist Linotype Relationship Specialty Start Date End Date Chari Rodriguez MD [address] [place] [address] PCP - General Family Medicine 05/19/12 documented as of this encounter
--- OUTSIDE RECORDS SUMMARY | 2024-10-05 12:09 | XMS_ITS | Encounter Summary ---
Author Organization [employer] Address [address] [facility] [place] [address] Care Team Providers Care Deliverer Food Name Role Phone Chari Rodriguez MD Primary Care Provider [phone] Reason for Visit * Reason Comments Med Refill Encounter Details Date Type Department Care Team ([facility] st Contact Info) Description 10/27/2023 Refill [facility] CHC MED & PEDS [address] [place] [address] Chari Rodriguez MD [address] [place] [address] Fibromyalgia; Sore of lower lip Social History Tobacco [...] Description 10/26/2024 9:30 AM EDT Clinical Support [facility] MED & PEDS [address] [place] [address] Thania Hawkins, RN [address] [place] [address] 12/28/2024 10:00 AM EDT Telemedicine [facility] MED & PED[facility] [address] [place] [address] Chari Rodriguez MD [address] [place] [address] documented as of this encounter Visit Diagnoses Diagnosis Fibromyalgia Unspecified myalgia and myositis Sore of lower lip documented in this encounter Additional Health Concerns Assessment Noted Time PHQ-9 Depression Total Score: 22 024 10:31 AM EST documented as of this encounter Care Teams Deliverer Food Relationship Specialty Start Date End Date Chari Rodriguez MD [address] [place] [address] PCP - General Family Medicine 05/19/12 documented as of this encounter
--- OUTSIDE RECORDS SUMMARY | 2024-10-05 12:09 | XMS_ITS | Encounter Summary ---
Author Organization [employer] Address [address] [place] [address] Care Team Providers Care Senior Python Developer Name Role Phone Chari Rodriguez MD Primary Care Provider [phone] Reason for Visit * Reason Onset Date Comments Med Refill 10/26/2023 Encounter Details Date Type Department Care Team (Late st Contact Info) Description 10/26/2023 Refill [facility] CH[facility] MED & PEDS [address] [place] [address] Chari Rodriguez MD [address] [place] [address] Sore of lower lip; Fibromyalgia Social History Tobacco Use Types Packs/Day Years [...] Clinical Support [facility] MED & PEDS [address] [place] [address] Thania Hawkins RN [address] [place] [address] 12/28/2024 10:00 AM EDT Telemedicine [facility] MED & PEDS [address] [place] [address] Chari Rodriguez MD [address] [place] [address] documented as of this encounter Visit Diagnoses Diagnosis Sore of lower lip Fibromyalgia Unspecified myalgia and myositis documented in this encounter Additional Health Concerns Assessment Noted Time PHQ-9 Depression Total Score: 22 024 10:31 AM EST documented as of this encounter Care Teams Senior Python Developer Relationship Specialty Start Date End Date Chari Rodriguez MD [address] [place] [address] PCP - General Family Medicine 05/19/12 documented as of this encounter
--- OUTSIDE RECORDS SUMMARY | 2024-10-05 12:09 | XMS_ITS | Encounter Summary ---
Author Organization [employer] Address [address] [facility] [address] [place] [address] Care Team Providers Care Cellophane Casting Machine Repairer Name Role Phone Chari Rodriguez MD Primary Care Provider [phone] Reason for Visit * Reason Onset Date Comments Appointment Request 02/25/2024 Encounter Details Date Type Department Care Team ([facility] st Contact Info) Description 02/25/2024 Telephone [facility] MEDICINE [address] [place] [address] Chari Rodriguez MD [address] [place], [place] [phone] Appointment Request Social History Tobacco Use Types Packs/Day Years [...] encounter Miscellaneous Notes * Telephone Encounter - Bhupendra Sparks - 02/25/2024 9:05 AM EDT Tc from pt requesting to reschedule MANAGER INVENTORY CONTROL visit. Please contact pt at [phone]. documented in this encounter Plan of Treatment Upcoming Encounters Date Type Department Care Team ([facility] st Contact Info) Description 10/26/2024 9:30 AM EDT Clinical Support [facility] MED & PEDS [address] [place] [address] Thania Hawkins, RN [address] [place] [address] 12/28/2024 10:00 AM EDT Telemedicine [facility] MED & PEDS [address] [place] [address] Chari Rodriguez MD [address] [place] [address] documented as of this encounter Visit Diagnoses Not on filedocumented in this encounter Additional Health Concerns Assessment Noted Time PHQ-9 Depression Total Score: 22 024 10:31 AM EST documented as of this encounter Care Teams Cellophane Casting Machine Repairer Relationship Specialty Start Date End Date Chari Rodriguez MD [address] [place] [address] PCP - General Family Medicine 05/19/12 documented as of this encounter
--- OUTSIDE RECORDS SUMMARY | 2024-10-05 12:09 | XMS_ITS | Encounter Summary ---
Author Organization [employer] Address [address] [facility] [address] [place] [address] Care Team Providers Care Coat Joiner Lockstitch Name Role Phone Chari Rodriguez MD Primary Care Provider Reason for Visit * Reason Comments Med Refill Encounter Details Date Type Department Care Team ([facility] st Contact Info) Description 03/09/2024 Refill [facility] CHC MED & PEDS [address] [place] [address] Chari Rodriguez MD [address] [place] [address] Social History Tobacco Use Types Packs/Day Years Used Date Smoking Tobacco: Every Day Cigarettes Smokeless Tobacco: Never Alcohol Use Standard Drinks/Week Comments Never 0 (1 standard drink = 0.6 oz pur e alcohol) Depression Answer Date Recorded Patient Health Questionnaire-9 Score 22 07/29/2023 Patient Health Questionnaire-9 Score 07/29/2023 Last PHQ-9: Questionnaire Data Not on [...] 9:30 AM EDT Clinical Support [facility] MED & PEDS [address] [place] [address] Thania Hawkins, ALON [address] [place] [address] 12/28/2024 10:00 AM EDT Telemedicine [facility] MED & PEDS [address] [place] [address] Chari Rodriguez MD [address] [place] [address] documented as of this encounter Visit Diagnoses Not on filedocumented in this encounter Additional Health Concerns Assessment Noted Time PHQ-9 Depression Total Score: 22 024 10:31 AM EST documented as of this encounter Care Teams Coat Joiner Lockstitch Relationship Specialty Start Date End Date Chari Rodriguez MD [address] [place] [address] PCP - General Family Medicine 05/19/12 documented as of this encounter
[2024-10-05 14:55] LABS: TSH reflex Free T4 3.75 uIU/mL (0.32-4.0)
== END 2024-10-05 10:19 | disposition home or self-care (01) ==
LOC: HO.CHCLDS 10:18
PROVIDERS: PCP Student in an Organized Health Care Education/Training Program; Visit Provider Student in an Organized Health Care Education/Training Program
DX: E03.9 Hypothyroidism, unspecified (principal)
CPT/HCPCS: 36415; 84443

== ENCOUNTER 2025-05-05 11:44 | Outpatient (REF) | payer OTHER, SELFPAY ==
--- OUTSIDE RECORDS SUMMARY | 2025-05-05 12:20 | XMS_ITS | Encounter Summary ---
Author Organization [facility] Address [address] [facility] [facility] [address] [facility] [address] [place] [address] Phone Care Team Providers Care Feather Edger Name Role Phone Chari Rodriguez MD Primary Care Provider [phone] Encounter Details Date Type Department Care Team (Late st Contact Info) Description 05/05/2025 12:20 PM EDT Hospital Encounter [facility] [address] [place] [address] Citlali Rodrigez MD [address] [facility], [address] [place] [address] [email or web address] Social History Tobacco Use Types Packs/Day Years Used Date Smoking Tobacco: Every Day Cigarettes Smokeless Tobacco: Never Alcohol Use Standard Drinks/Week Comments Not Currently 0 (1 standard drink = 0.6 oz pur e alcohol) Education Answer Date Recorded Are you interested in more education? Not on rai e 11/01/2022 Are you concerned about learning? Not on file 11/01/2022 No 11/01/2022 No 11/01/2022 Digital Access Answer Date Recorded No 11/28/2022 No 11/28/2022 Reliable internet access at home? Not on file 11/28/2022 Device with a working camera? Not on file Intimate Partner Violence Answer Date R ecorded Are you denied basic needs s uch as food, clothing, or medical care? No 06/27/2023 In the past 12 months have y ou been in a relationship with a person who hurts, threatens, or tries to control you? No 06/27/2023 Are you denied basic needs s uch as food, clothing, or medical care? No 06/27/2023 In the past 12 months have y ou been in a relationship with a person who hurts, threatens, or tries to control you? No 06/27/2023 Comments Unknown Sex and Gender Information Value Date Recorded Sex Assigned at Female 03/31/2023 12:05 PM EDT Legal Sex Female 12:05 PM EST Gender Identity Female 03/31/2023 12:05 PM EDT Sexual Orientation Straight 03/31/2023 12 :05 PM EDT documented as of this encounter Plan of Treatment Upcoming Encounters Date Type Department Care Team (Late st Contact Info) Description 06/15/2025 2:30 PM EST Office Visit [facility] Rheumatology [address] [place] [address] Citlali Rodrigez MD [address] [place] [address], [address] [place] [address] [email or web address] [email or web address] Results Name Type Priority Associated Diagnoses Date /Time 25-OH vitamin D Lab Routine Vitamin D deficiency, unspecified 05/05/2025 12:51 PM EDT Complement C3 Lab Routine Systemic lupus erythematosus, unspecified SLE type, unspecified organ involvement status 05/05/2025 12:51 PM EDT Complement C4 Lab Routine Systemic lupus erythematosus, unspecified SLE type, unspecified organ involvement status 05/05/2025 12:51 PM EDT Comprehensive metabolic panel Lab Routine Systemic lupus erythematosus, unspecified SLE type, unspecified organ involvement status 05/05/2025 12:51 PM EDT C-Reactive Protein Lab Routine Systemic lupus erythematosus, unspecified SLE type, unspecified organ involvement status 05/05/2025 12:51 PM EDT CBC and differential Lab Routine Systemic lupus erythematosus, unspecified SLE type, unspecified organ involvement status 05/05/2025 12:51 PM EDT Sedimentation rate (ESR) Lab Routine Systemic lupus erythematosus, unspecified SLE type, unspecified organ involvement status 05/05/2025 12:51 PM EDT Uric acid Lab Routine Systemic lupus erythematosus, unspecified SLE type, unspecified organ involvement status 05/05/2025 12:51 PM EDT Double stranded DNA antibodies Lab Routine Systemic lupus erythematosus, unspecified SLE type, unspecified organ involvement status 05/05/2025 12:51 PM EDT CPK (creatine kinase) Lab Routine Systemic lupus erythematosus, unspecified SLE type, unspecified organ involvement status 05/05/2025 12:51 PM EDT TOTAL PROTEIN CREATININE RATIO, RANDOM URINE Lab Routine Systemic lupus erythematosus, unspecified SLE type, unspecified organ involvement status 05/05/2025 12:51 PM EDT Scheduled Orders Name Type Priority Associated Diagnoses Orde r Schedule 25-OH vitamin D Lab Routine Vitamin D deficiency, unspecified As Needed for 1 Occurrences starting 05/05/2025 until 05/05/2025 Complement C3 Lab Routine Systemic lupus erythematosus, unspecified SLE type, unspecified organ involvement status As Needed for 1 Occurrences starting 05/05/2025 until 05/05/2025 Complement C4 Lab Routine Systemic lupus erythematosus, unspecified SLE type, unspecified organ involvement status As Needed for 1 Occurrences starting 05/05/2025 until 05/05/2025 Comprehensive metabolic panel Lab Routine Systemic lupus erythematosus, unspecified SLE type, unspecified organ involvement status As Needed for 1 Occurrences starting 05/05/2025 until 05/05/2025 C-Reactive Protein Lab Routine Systemic lupus erythematosus, unspecified SLE type, unspecified organ involvement status As Needed for 1 Occurrences starting 05/05/2025 until 05/05/2025 CBC and differential Lab Routine Systemic lupus erythematosus, unspecified SLE type, unspecified organ involvement status As Needed for 1 Occurrences starting 05/05/2025 until 05/05/2025 Sedimentation rate (ESR) Lab Routine Systemic lupus erythematosus, unspecified SLE type, unspecified organ involvement status As Needed for 1 Occurrences starting 05/05/2025 until 05/05/2025 Uric acid Lab Routine Systemic lupus erythematosus, unspecified SLE type, unspecified organ involvement status As Needed for 1 Occurrences starting 05/05/2025 until 05/05/2025 Double stranded DNA antibodies Lab Routine Systemic lupus erythematosus, unspecified SLE type, unspecified organ involvement status As Needed for 1 Occurrences starting 05/05/2025 until 05/05/2025 CPK (creatine kinase) Lab Routine Systemic lupus erythematosus, unspecified SLE type, unspecified organ involvement status As Needed for 1 Occurrences starting 05/05/2025 until 05/05/2025 Total protein creatinine ratio, random urine Lab Routine Systemic lupus erythematosus, unspecified SLE type, unspecified organ involvement status As Needed for 1 Occurrences starting 05/05/2025 until 05/05/2025 documented as of this encounter Visit Diagnoses Diagnosis Vitamin D deficiency, unspecified Systemic lupus erythematosus, unspecified SLE type, unspecified organ involvement status documented in this encounter Care Teams Feather Edger Relationship Specialty Start Date End Date Chari Rodriguez MD [address] [place] [id number] PCP - General Family Medicine 07/17/21 documented as of this encounter Additional Source Comments The information contained in this document represents components of the legal health record. It is not the complete legal health record.[facility]
--- OUTSIDE RECORDS SUMMARY | 2025-05-05 13:20 | XMS_ITS | Encounter Summary ---
Author Organization [employer] Address [address] [place] [address] Care Team Providers Care Plant Quality Manager Name Role Phone Chari Rodriguez MD Primary Care Provider [phone] Waqar Leung CNP Primary Care Provider [phone] Reason for Visit * Reason Onset Date Comments Med Refill 08/16/2024 Encounter Details Date Type Department Care Team (Late st Contact Info) Description 08/16/2024 Telephone [facility] MEDICINE [address] [place] [address] Chari Rodriguez MD [address] [place], [place] [phone] Med Refill Social History Tobacco Use Types [...] 50 MG tablet To be sent to: [facility]/pharmacy [address] [place] [address] documented in this encounter Plan of Treatment Upcoming Encounters Date Type Department Care Team ([facility] st Contact Info) Description 05/18/2025 2:00 PM EST Clinical Support [facility] MED & PEDS [address] [place] [address] Thania Hawkins, ALON [address] [place] [address] documented as of this encounter Visit Diagnoses Not on filedocumented in this encounter Additional Health Concerns Assessment Noted Time PHQ-9 Depression Total Score: 22 024 11:04 AM EST documented as of this encounter Care Teams Plant Quality Manager Relationship Specialty Start Date End Date Chari Rodriguez MD [address] [place] [id number] PCP - General Family Medicine 05/19/12 05/03/25 Waqar Leung CNP [address] [place] [id number] PCP - General Family Medicine 05/04/25 documented as of this encounter
--- OUTSIDE RECORDS SUMMARY | 2025-05-05 13:20 | XMS_ITS | Encounter Summary ---
Author Organization [employer] Address [address] [facility] 7 [place] [address] Care Team Providers Care Ict Customer Support Officer Name Role Phone Chari Rodriguez MD Primary Care Provider [phone] Waqar Leung CNP Primary Care Provider [phone] Reason for Visit * Reason Comments Med Refill Encounter Details Date Type Department Care Team ([facility] st Contact Info) Description 10/07/2024 Refill [facility] MED & PEDS [address] [place], [place] [phone] Obed Jalloh MD [address] [place], [place] [phone] Fibromyalgia Social History Tobacco Use Types Packs/Day [...] Upcoming Encounters Date Type Department Care Team ([facility] st Contact Info) Description 05/18/2025 2:00 PM EST Clinical Support [facility] MED & PEDS [address] [place] [address] Thania Hawkins, ALON [address] [place] [address] documented as of this encounter Visit Diagnoses Diagnosis Fibromyalgia Unspecified myalgia and myositis documented in this encounter Additional Health Concerns Assessment Noted Time PHQ-9 Depression Total Score: 13 025 9:59 AM EDT documented as of this encounter Care Teams Ict Customer Support Officer Relationship Specialty Start Date End Date Chari Rodriguez MD [address] [place] [address] PCP - General Family Medicine 05/19/12 05/03/25 Waqar Leung CNP [address] [place] [address] PCP - General Family Medicine 05/04/25 documented as of this encounter
--- OUTSIDE RECORDS SUMMARY | 2025-05-05 13:20 | XMS_ITS | Encounter Summary ---
Author Organization [employer] Address [address] [facility] [address] [place] [address] Care Team Providers Care Cra Officer Name Role Phone Chari Rodriguez MD Primary Care Provider [phone] Waqar Leung CNP Primary Care Provider [phone] Reason for Visit * Reason Onset Date Comments Medication Question 02/10/2024 Encounter Details Date Type Department Care Team (Late st Contact Info) Description 02/10/2024 Telephone [facility] MEDICINE [address] [place] [address] Chari Rodriguez MD [address] [place], [place] [phone] Medication Question Social History Tobacco Use Types [...] pharmacy and was told unable to fill script editor was informed by pharmacist it needed to be corrected states has 2 set of directions documented in this encounter Plan of Treatment Upcoming Encounters Date Type Department Care Team (Late st Contact Info) Description 05/18/2025 2:00 PM EST Clinical Support [facility] MED & PEDS [address] [place] [address] Thania Hawkins, RN [address] [place] [address] documented as of this encounter Visit Diagnoses Diagnosis Fibromyalgia Unspecified myalgia and myositis documented in this encounter Additional Health Concerns Assessment Noted Time PHQ-9 Depression Total Score: 22 024 10:31 AM EST documented as of this encounter Care Teams Cra Officer Relationship Specialty Start Date End Date Chari Rodriguez MD [address] [place] [id number] PCP - General Family Medicine 05/19/12 05/03/25 Waqar Leung CNP [address] [place] [address] PCP - General Family Medicine 05/04/25 documented as of this encounter
--- OUTSIDE RECORDS SUMMARY | 2025-05-05 13:20 | XMS_ITS | Encounter Summary ---
Author Organization [employer] Address [address] [facility] [address] [place] [address] Care Team Providers Care Medical Pathology Teacher Name Role Phone Chari Rodriguez MD Primary Care Provider [phone] Waqar Leung CNP Primary Care Provider [phone] Reason for Visit * Reason Comments Med Refill Encounter Details Date Type Department Care Team (Late st Contact Info) Description 01/25/2024 Refill [facility] MEDICINE [address] [place] [address] Chari Rodriguez MD [address] [place], [place] [phone] Sore of lower lip Social History Tobacco [...] Description 05/18/2025 2:00 PM EST Clinical Support [facility] MED & PEDS [address] [place] [address] Thania Hawkins, ALON [address] [place] [address] documented as of this encounter Visit Diagnoses Diagnosis Sore of lower lip documented in this encounter Additional Health Concerns Assessment Noted Time PHQ-9 Depression Total Score: 22 024 10:31 AM EST documented as of this encounter Care Teams Medical Pathology Teacher Relationship Specialty Start Date End Date Chari Rodriguez MD [address] [place] [address] PCP - General Family Medicine 05/19/12 05/03/25 Waqar Leung CNP [address] [place] [address] PCP - General Family Medicine 05/04/25 documented as of this encounter
--- OUTSIDE RECORDS SUMMARY | 2025-05-05 13:20 | XMS_ITS | Encounter Summary ---
Author Organization [facility] Address [address] [place] [address] Phone Care Team Providers Care Meter Installer And Remover Name Role Phone Chari Rodriguez MD Primary Care Provider [phone] Encounter Details Date Type Department Care Team (Late st Contact Info) Description 09/11/2022 Transcribe Orders [facility] Laboratory [address] [place] [address] Giovanni Day MD [address] [place] [id number] Social History Tobacco Use Types Packs/Day Years Used Date Smoking Tobacco: Every Day Cigarettes Smokeless Tobacco: Never Comments Unknown Sex and Gender Information Value [...] Description 06/15/2025 2:30 PM EST Office Visit [facility] Rheumatology [address] [place] [address] Citlali Rodrigez MD [address] [facility], [address] [place] [address] [email or web address] documented as of this encounter Visit Diagnoses Not on filedocumented in this encounter Care Teams Meter Installer And Remover Relationship Specialty Start Date End Date Chari Rodriguez MD [address] [place] [id number] PCP - General Family Medicine 07/17/21 documented as of this encounter Additional Source Comments The information contained in this document represents components of the legal health record. It is not the complete legal health record.[facility]
--- OUTSIDE RECORDS SUMMARY | 2025-05-05 13:20 | XMS_ITS | Clinical Summary ---
Author Organization [employer] Address 75 [facility] 7t [place] [address] Care Team Providers Care Application Designer Name Role Phone Waqar Leung COMPA Primary Care Provider [phone] Allergies Active Allergy Reactions Criticality Noted Date [...] DAY 90 capsule 2 10/19/19 24 Active acyclovir (Zovirax) 5 % ointment APPLY TOPICALLY 6 (SIX) TIMES A DAY. SPACE APPLICATIONS EVERY 3 HOURS. 30 g 3 05/30/20 24 Active SUMAtriptan (Imitrex) 100 MG tablet 06/09/20 Active simvastatin (Zocor) 10 MG tablet TAKE 1 TABLET BY MOUTH EVERYDAY AT BEDTIME 90 tablet 3 07/26/19 25 Active DULoxetine (Cymbalta) [address] capsule TAKE 1 CAPSULE BY MOUTH 2 TIMES DAILY. DO NOT CRUSH OR CHEW. 180 capsule 3 07/26/19 25 Active cyanocobalamin (Vitamin B-12) 1000 MCG tabletIndicati ons:Vitamin B12 deficiency TAKE 1 TABLET BY MOUTH IN THE MORNING DAILY. 90 tablet 08/23/19 25 Active nicotine (Nicoderm, Step 1) 21 MG/24HR patch Place 1 patch on the skin 1 (one) time each day at the same time. 30 patch 09/21/19 25 2025 Active melatonin 5 MG tablet Take 1 tablet (5 mg) by mouth at bedtime. 30 tablet 10/06/19 25 2025 Active nicotine (Nicoderm, Step 2) 14 MG/24HR patch PLACE 1 PATCH ON THE SKIN ONCE PER DAY. 28 patch 3 10/26/19 25 Active levothyroxine (Synthroid, Levoxyl) 50 MCG tabletIndicati ons:Hypothyroi dism, unspecified type TAKE 1 TABLET BY MOUTH EVERY DAY 90 tablet 1 11/21/19 25 Active prazosin (Minipress) 2 MG capsule TAKE 1 CAPSULE BY MOUTH EVERYDAY AT BEDTIME 90 capsule 1 01/26/20 25 Active naloxone (Narcan) 4 mg/0.1 mL nasal spray Administer 1 spray (4 mg) into affected nostril(s) if needed for opioid reversal. May repeat every 2-3 minutes if needed, alternating nostrils, until medical assistance becomes available. 2 each 2 02/24/20 25 2025 Active traZODone (Desyrel) 50 MG tablet TAKE 1 TABLET BY MOUTH EVERYDAY AT BEDTIME 90 tablet 03/07/20 25 Active traMADol (Ultram) 50 MG tabletIndicati ons:Fibromyalg ia Take 1 tablet (50 mg) by mouth every 8 (eight) hours if needed for severe pain for up to 28 days. 84 tablet 04/13/20 25 2024 Active valACYclovir (Valtrex) 1 g tabletIndicati ons:Sore of lower lip TAKE 1 TABLET BY MOUTH TWICE A DAY FOR 10 DAYS 10 tablet 04/13/20 25 Active traMADol (Ultram) 50 MG tabletIndicati ons:Fibromyalg ia Take 1 tablet (50 mg) by mouth every 8 (eight) hours if needed for severe pain for up to 28 days. Do not start before March 17, 2025. 84 tablet 03/17/20 25 2024 Discontinued(R eorder (will not trigger notification to Pharmacy)) valACYclovir (Valtrex) 1 g tabletIndicati ons:Sore of lower lip TAKE 1 TABLET BY MOUTH TWICE A DAY FOR 10 DAYS 10 tablet 03/16/20 25 2024 Discontinued(R eorder (will not trigger notification to Pharmacy)) Active Problems Problem Noted Date Diagnosed Date Long-term current use of opiate analgesic 2024 Severe recurrent major depre ssion with psychotic features (CMS/HCC) 08/19/2022 Assessment & Plan (12/30/2022 11:36 AM [...] in 3-4 weeks. 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 She also reported [...] effects. She may try contacting her insurance follow up representative versus PCPs office regarding help from cigarette smoking cessation specialist. She could not tolerate mood changes as she attempted to quit recently and would benefit from mortgage loan specialist help. Call 6-501-EKKH-NOW that is free service available nationally for people who struggle with cigarette smoking cessation. 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 Resolved Problems Problem Noted Date Diagnosed Date Resolved Date Depressive disorder 07/29/2010 08/19/19 23 Encounters Date Type Department Care Team Description 04/12/2025 10:45 AM EDT Office Visit [facility] [address] [place] [address] Chari Rodriguez MD Urinary incontinence, unspecified type (Primary Dx); Incontinence of feces, unspecified fecal incontinence type 04/12/2025 Refill [facility] [address] [place] [address] Chari Rodriguez MD Fibromyalgia; Sore of lower lip 04/12/2025 Travel 04/05/2025 Telephone [facility] [address] [place] [address] Chari Rodriguez MD Appointment Request 03/16/2025 Refill [facility] [address] [place] [address] Giovanni Day MD Fibromyalgia; Sore of lower lip 03/05/2025 Refill [facility] [address] [place] [address] Chari Rodriguez MD 02/23/2025 1:30 PM EDT Clinical Support [facility] [address] [place] [address] Thania Hawkins, RN Other chronic pain 02/23/2025 Refill [facility] [address] [place] [address] Thania Hawkins RN 02/23/2025 Travel 02/17/2025 Refill [facility] [address] [place] [address] Chari Rodriguez MD Fibromyalgia; Sore of lower lip from Last 3 Months Immunizations Immunization Administration Dates Next Due Influenza Injectable Quadriv [...] Sign Reading Time Taken Comments Blood Pressure 136/85 04/12/2025 10:29 AM EDT Pulse 92 04/12/2025 10:29 AM EDT Temperature 36.4 C (97.6 F) 04/12/2025 10:29 AM EDT Respiratory Rate 18 04/12/2025 10:29 AM EDT Oxygen Saturation 98% 10/05/2024 9:57 AM EDT Inhaled Oxygen Concentration - - Weight 72.6 kg (160 lb) 04/12/2025 10:29 AM EDT Height 160 cm (5' 3 ) 04/12/2025 10:29 AM EDT Body Mass Index 28.34 04/12/2025 10:29 AM EDT Plan of Treatment Upcoming Encounters Date Type Department Care Team ([facility] st Contact Info) Description 05/18/2025 2:00 PM EST Clinical Support [facility]S [address] [place] [address] Thania Hawkins, ALON [address] [place] [address] Health Maintenance Due Date Last Done Comments Disability Screening 1983 Family Planning (PISQ) 1998 HPV Vaccines (1 - 3-dose series) 1998 Hepatitis B Vaccines (1 of 3 - 19+ 3-dose series) 2002 03/14/2024 Mammogram 2023 SDOH Screening 07/21/2024 07/21/2023 Influenza Vaccine (#1) 2025 , 06/30/2023, 08/22/2022, Additional history exists Depression Monitoring 04/06/2025 10/05/2024, 025 Alcohol/Substance Use Screening 10/05/2025 10/05/2024 Tobacco Screening 04/12/2026 04/12/2025 Lipid Panel 07/29/2028 07/29/2023, 10/10/2020 Cervical Cancer Screening 03/24/2029 HPV/Cotest 03/24/2029 Pap Smear 03/24/2029 03/24/2024, 02/25/2013 Zoster Vaccines (1 of 2) 2033 DTaP/Tdap/Td Vaccines (2 - Td or Tdap) 07/29/2033 07/29/2023, 09/16/2006, 05/22/2005 RSV Patients and Patients Aged 60 years or older (1 - 1-dose 75+ series) 2058 HIV Screening Completed 09/26/2019 Hepatitis C Screening Completed 09/26/2019 COVID-19 Vaccine Completed 03/22/2024, , 11/30/2020 Pneumococcal Vaccine: Pediatrics (0 to 5 Years) and At-Risk Patients (6 to 49) Years Completed 03/22/2024 HIB Vaccines Aged Out No longer eligi ble based on patient's age to complete this topic Hepatitis A Vaccines Aged Out No long er eligible based on patient's age to complete this topic IPV Vaccines Aged Out No longer eligi ble based on patient's age to complete this topic Meningococcal B Vaccine Aged Out No l onger eligible based on patient's age to complete [...] Comments POCT FREYA-14 URINE DRUG SCREEN Routine 02/23/2025 1:33 PM EDT Other chronic pain HM PAP/HPV Routine 03/24/2024 12:20 PM EDT LIPID PANEL, STANDARD Routine 07/29/2023 10:47 AM EST Hypothyroidism, unspecified type ZZZ HISTORICAL HEPATITIS C ANTIBODY Routine 09/26/2019 12:52 PM EDT ZZZ HISTORICAL HIV AB/AG Routine 09/26/2019 12:52 PM EDT from Last 3 Months or Most Recently Relevant to Health Maintenance Results * POCT FREYA-14 Urine Drug Screen (02/23/2025 1:33 PM EDT) THC Negative Negative Cocaine Screen, Urine Negative Negative Opiate Screen, Urine Negative Negative Methamphetamine Screen Urine Negative Negative Amphetamine Screen, Urine Negative Negative Benzodiazepines Screen, Urine Negative Negative Barbiturate Screen, Urine Negative Negative Methadone Screen, Urine Negative Negative Buprenophine Screen, Urine Negative Negative TCA, Urine Negative Negative MDMA Urine Negative Negative ng/mL Oxycodone Screen, Urine Negative Negative Phencyclidine (PCP), Urine Negative Negative Propoxyphene, Urine Negative Negative Fentanyl, Urine Negative Negative Urine Urine specimen obtained by clean catch procedure / Unknown 02/23/2025 1:33 PM EDT Narrative Thania Hawkins RN - 02/23/2025 1:33 PM EDT Internal Pass Control Lot# [id number] Exp: 05-05-26 Chari Rodriguez MD POINT OF CARE TEST ENTER/EDIT OR DERABLES Final Result * HM PAP/HPV (03/24/2024 12:20 PM EDT) Historical Provider HEALTH MAINTENANCE Final Result * (ABNORMAL) Lipid Panel, Standard (07/29/2023 10:47 AM EST) Triglycerides 516(H) <150 mg/dL [facility] Comment:Desirable Triglyceri de: less than 150 mg/dLBorderline High Triglyceride 150-199 mg/dLHigh Triglyceride: 200-499 mg/dLVery High Triglyceride: greater than or equal to 5OO mg/dL Cholesterol 232(H) <200 mg/dL [facility] Comment:Desirable Cholestero l: less than 200 mg/dLBorderline High Cholesterol: 200-239 mg/dLHigh Cholesterol: greater than 239 mg/dL LDL Cholesterol Calculated TNP <100 mg/dL [facility] Comment:Unable to calculate the LDL. The formula of Friedwald,Gold, and Mitchel is only valid if the triglycerides areless than 400 mg/dl. HDL Cholesterol 34(L) >40 mg/dL [facility] Comment:Desirable HDL: great er than 40 mg/dL Note: This HDL assay may give artificially low results in patients with liver disease. Blood Venous blood specimen / Unknown 07/29/2023 10:47 AM EST 07/29/2023 2:55 PM EST Chari Rodriguez MD LAB BLOOD ORDERABLES Final Resul t Performing Organization Address City/[facility] Co de Phone Number [facility] [address] [place] [address] [phone] * HEPATITIS C ANTIBODY (09/26/2019 12:52 PM EDT) HEPATITIS C ANTIBODY NONREACTIVE [facility] Comment: Antibodies to HCV not detected; does not exclude early acute HCV infection. 09/26/2019 12:5 2 PM EDT Aston Kamara MD HISTORICAL/NON ORDERABLE LABS Fi nal Result Performing Organization Address [facility] Phone Number [facility] [address] * HIV AB/AG (09/26/2019 12:52 PM EDT) Pathologist [facility] HIV AG/AB NONREACTIVE NR [facility] Comment: HIV-1 p24 Ag and/or HIV-1/HIV-2 Ab not detected. A test result that is nonreactive does not exclude the possibility of exposure to or infection with HIV-1 and/or HIV-2. Nonreactive results in this assay for individuals with prior exposure to HIV-1 and/or HIV-2 may be due to antigen and antibody levels that are below the limit of detection of this assay. The [facility] Picking Technician HIV Ag/Ab Combo assay result and supplemental assay results should be interpreted in conjunction with the patient's clinical presentation, history and other laboratory results. If the results are inconsistent with clinical evidence, additional testing is suggested to confirm the result. 09/26/2019 12:5 2 PM EDT Aston Kamara MD HISTORICAL/NON ORDERABLE LABS Fi nal Result Performing Organization Address [facility] Co de Phone Number [facility] [address] from Last 3 Months or Most Recently Relevant to Health Maintenance Insurance [facility] ONE CARE < [facility] Care Teams Application Designer Relationship Specialty Start Date End Date Waqar Leung CNP [address] [place] [address] PCP - General Family Medicine 05/04/25
--- OUTSIDE RECORDS SUMMARY | 2025-05-05 13:20 | XMS_ITS | Encounter Summary ---
Author Organization [employer] [facility] Address [address] [place] [address] Phone Care Team Providers Care Economic Consultant Name Role Phone Chari Rodriguez MD Primary Care Provider [phone] Encounter Details Date Type Department Care Team (Late st Contact Info) Description 06/27/2023 Ophth Exam [facility] Emergency Department [address] [place] [address] Nicole Verdugo MD, MPH [address] [place] [address] [email or web address] Social History Tobacco Use Types Packs/Day Years [...] PM EDT documented as of this encounter Functional Status * Calculated C-SSRS Risk Score (Lifetime/Recent) Answer Date of Assessment Author No Risk Indicated 06/27/2023 11:34 AM Imani Giraldo RN * Portal Suicide Severity Rating Scale (Screener/Recent Self-Report) Question Answer Date of Assessment Author 1. Wish to be (Past 1 Month) No 06/27/2023 11:34 AM Magnus Manjarrez RN 2. Non-Specific Active Suicidal Thoughts (Past 1 Month) No 06/27/2023 11:34 AM Magnus Manjarrez RN 6. Suicidal Behavior (Lifetime) No 06/27/2023 11:34 AM Magnus Manjarrez RN documented as of this encounter Plan of Treatment Upcoming Encounters Date Type Department Care Team (Late st Contact Info) Description 06/15/2025 2:30 PM EST Office Visit [facility] [place] [address] Citlali Rodrigez MD [address] [place] [address], [address] [place] [address] [email or web address] documented as of this encounter Visit Diagnoses Not on filedocumented in this encounter Care Teams Economic Consultant Relationship Specialty Start Date End Date Chari Rodriguez MD [address] [place] [address] PCP - General Family Medicine 07/17/21 documented as of this encounter Additional Source Comments The information contained in this document represents components of the legal health record. It is not the complete legal health record.[facility]
--- OUTSIDE RECORDS SUMMARY | 2025-05-05 13:20 | XMS_ITS | Encounter Summary ---
Author Organization [employer] Address 75 [facility] 7t [place] [address] Care Team Providers Care Learning Development Specialist Name Role Phone Chari Rodriguez MD Primary Care Provider [phone] Waqar Leung CNP Primary Care Provider [phone] Reason for Visit * Reason Onset Date Comments Med Refill 02/08/2024 Encounter Details Date Type Department Care Team (Late st Contact Info) Description 02/08/2024 Refill [facility] MEDIC[facility] [address] [place] [address] Chari Rodriguez MD [address] [place], [place] [id number] Sore of lower lip Social History Tobacco [...] Description 05/18/2025 2:00 PM EST Clinical Support [facility] MED & PEDS [address] [place] [address] Thania Hawkins, ALON [address] [place] [address] documented as of this encounter Visit Diagnoses Diagnosis Sore of lower lip documented in this encounter Additional Health Concerns Assessment Noted Time PHQ-9 Depression Total Score: 22 024 10:31 AM EST documented as of this encounter Care Teams Learning Development Specialist Relationship Specialty Start Date End Date Chari Rodriguez MD [address] [place] [address] PCP - General Family Medicine 05/19/12 05/03/25 Waqar Leung CNP [address] [place] [address] PCP - General Family Medicine 05/04/25 documented as of this encounter
--- OUTSIDE RECORDS SUMMARY | 2025-05-05 13:20 | XMS_ITS | Encounter Summary ---
Author Organization [employer] Address 75 [facility] 7t [place] [address] Care Team Providers Care Sql Etl Developer Name Role Phone Chari Rodriguez MD Primary Care Provider [phone] Waqar Leung CNP Primary Care Provider [phone] Reason for Visit * Reason Onset Date Comments Med Refill 09/26/2022 Encounter Details Date Type Department Care Team ([facility] st Contact Info) Description 09/26/[address] [facility] MED & PEDS [address] [place], [place] [phone] Chari Rodriguez MD [address] [place] [address] Other chronic pain Social History Tobacco Use [...] Description 05/18/2025 2:00 PM EST Clinical Support [facility] MED & PED[facility] [address] [place] [address] Thania Hawkins, ALON [address] [place] [address] documented as of this encounter Visit Diagnoses Diagnosis Other chronic pain documented in this encounter Additional Health Concerns Assessment Noted Time PHQ-9 Depression Total Score: 19 023 10:15 AM EST documented as of this encounter Care Teams Sql Etl Developer Relationship Specialty Start Date End Date Chari Rodriguez MD [address] [place] [address] PCP - General Family Medicine 05/19/12 05/03/25 Waqar Leung CNP [address] [place] [address] PCP - General Family Medicine 05/04/25 documented as of this encounter
--- OUTSIDE RECORDS SUMMARY | 2025-05-05 13:20 | XMS_ITS | Encounter Summary ---
Author Organization [employer] Address 75 [facility] 7t [place] [address] Care Team Providers Care Divisional Storekeeper Name Role Phone Chari Rodriguez MD Primary Care Provider [phone] Waqar Leung CNP Primary Care Provider [phone] Reason for Visit * Reason Onset Date Comments Appointment Request 02/25/2024 Encounter Details Date Type Department Care Team (Late st Contact Info) Description 02/25/2024 Telephone [facility] MEDICINE [address] [place] [address] Chari Rodriguez MD [address] [place], [place] [phone] Appointment Request Social History Tobacco Use Types [...] EDT Tc from pt requesting to reschedule EVENING ANCHOR visit. Please contact pt at [phone]. documented in this encounter Plan of Treatment Upcoming Encounters Date Type Department Care Team ([facility] st Contact Info) Description 05/18/2025 2:00 PM EST Clinical Support [facility] [address] [place] [address] Thania Hawkins RN [address] [place] [address] documented as of this encounter Visit Diagnoses Not on filedocumented in this encounter Additional Health Concerns Assessment Noted Time PHQ-9 Depression Total Score: 22 024 10:31 AM EST documented as of this encounter Care Teams Divisional Storekeeper Relationship Specialty Start Date End Date Chari Rodriguez MD [address] [place] [address] PCP - General Family Medicine 05/19/12 05/03/25 Waqar Leung CNP [address] [place] [address] PCP - General Family Medicine 05/04/25 documented as of this encounter
--- OUTSIDE RECORDS SUMMARY | 2025-05-05 13:20 | XMS_ITS | Encounter Summary ---
Author Organization [employer] Address 75 [facility] 7t [place] [address] Care Team Providers Care Blister Pack Operator Name Role Phone Chari Rodriguez MD Primary Care Provider [phone] Waqar Leung CNP Primary Care Provider [phone] Encounter Details Date Type Department Care Team (Late st Contact Info) Description 04/04/2024 Orders Only [facility] [address] [place], [place] [phone] Chari Rodriguez MD [address] [place] [address] Social History Tobacco Use Types Packs/Day Years [...] Description 05/18/2025 2:00 PM EST Clinical Support [facility] [address] [place] [address] Thania Hawkins, ALON [address] [place] [address] documented as of this encounter Visit Diagnoses Not on filedocumented in this encounter Additional Health Concerns Assessment Noted Time PHQ-9 Depression Total Score: 22 024 10:31 AM EST documented as of this encounter Care Teams Blister Pack Operator Relationship Specialty Start Date End Date Chari Rodriguez MD [address] [place] [address] PCP - General Family Medicine 05/19/12 05/03/25 Waqar Leung CNP [address] [place] [address] PCP - General Family Medicine 05/04/25 documented as of this encounter
--- OUTSIDE RECORDS SUMMARY | 2025-05-05 13:20 | XMS_ITS | Encounter Summary ---
Author Organization [employer] Address 75 [facility] 7t [place] [address] Care Team Providers Care Hair Tinter Name Role Phone Chari Rodriguez MD Primary Care Provider Waqar Leung CNP Primary Care Provider [phone] Reason for Visit * Reason Comments Med Refill Encounter Details Date Type Department Care Team (Late st Contact Info) Description 03/09/2024 Refill [facility] MED [facility] PEDS [address] [place], [place] [phone] Chari Rodriguez MD [address] [place], [place] [phone] Social History Tobacco Use Types Packs/Day Years [...] Description 05/18/2025 2:00 PM EST Clinical Support [facility] [address] [place] [address] Thania Hawkins, ALON [address] [place] [address] documented as of this encounter Visit Diagnoses Not on filedocumented in this encounter Additional Health Concerns Assessment Noted Time PHQ-9 Depression Total Score: 22 024 10:31 AM EST documented as of this encounter Care Teams Hair Tinter Relationship Specialty Start Date End Date Chari Rodriguez MD [address] [place] [address] PCP - General Family Medicine 05/19/12 05/03/25 Waqar Leung CNP [address] [place] [address] PCP - General Family Medicine 05/04/25 documented as of this encounter
--- OUTSIDE RECORDS SUMMARY | 2025-05-05 13:20 | XMS_ITS | Encounter Summary ---
Author Organization [employer] [facility] Address [address] [place] [address] Phone Care Team Providers Care Insurance Broker Name Role Phone Chari Rodriguez MD Primary Care Provider [phone] Encounter Details Date Type Department Care Team (Late st Contact Info) Description 06/27/2023 Procedure Pass [facility], [facility] [address] [place] [address] Social History Tobacco Use Types Packs/Day Years [...] 06/27/2023 11:34 AM Imani Giraldo RN * [place] Suicide Severity Rating Scale (Screener/Recent Self-Report) Question [...] Description 06/15/2025 2:30 PM EST Office Visit [facility] Rheumatology [address] [place] [address] Citlali Rodrigez MD [address] [place] [address], [address] [place] [address] documented as of this encounter Visit Diagnoses Not on filedocumented in this encounter Care Teams Insurance Broker Relationship Specialty Start Date End Date Chari Rodriguez MD [address] [place] [address] PCP - General Family Medicine 1/12/22 documented as of this encounter Additional Source Comments The information contained in this document represents components of the legal health record. It is not the complete legal health record.[facility]
--- OUTSIDE RECORDS SUMMARY | 2025-05-05 13:20 | XMS_ITS | Encounter Summary ---
Author Organization [employer] Address 75 [facility] 7 [place] [address] Care Team Providers Care Section Plotter Operator Name Role Phone Chari Rodriguez MD Primary Care Provider [phone] Waqar Leung CNP Primary Care Provider [phone] Encounter Details Date Type Department Care Team ([facility] Contact Info) Description 10/03/2022 Orders Only [facility] MED & PEDS [address] [place], [place] [phone] Obed Jalloh MD [address] [place] [address] Social History Tobacco Use Types Packs/Day Years [...] Upcoming Encounters Date Type Department Care Team ([facility] Contact Info) Description 05/18/2025 2:00 PM EST Clinical Support [facility]S [address] [place] [address] Thania Hawkins, ALON [address] [place] [address] documented as of this encounter Visit Diagnoses Not on filedocumented in this encounter Additional Health Concerns Assessment Noted Time PHQ-9 Depression Total Score: 19 023 10:15 AM EST documented as of this encounter Care Teams Section Plotter Operator Relationship Specialty Start Date End Date Chari Rodriguez MD [address] [place] [address] PCP - General Family Medicine 05/19/12 05/03/25 Waqar Leung CNP [address] [place] [address] PCP - General Family Medicine 05/04/25 documented as of this encounter
--- OUTSIDE RECORDS SUMMARY | 2025-05-05 13:20 | XMS_ITS | Encounter Summary ---
Author Organization [employer] Address 75 [facility] 7t [place] [address] Care Team Providers Care Food Order Delivery Runner Name Role Phone Chari Rodriguez MD Primary Care Provider [phone] Waqar Leung CNP Primary Care Provider [phone] Reason for Visit * Reason Comments Med Refill Encounter Details Date Type Department Care Team (Late st Contact Info) Description 03/08/2024 Refill [facility] CHC MED & PEDS 505 [place], [place] [phone] Chari Rodriguez MD 505 [place], [place] [phone] Hypothyroidism, unspecified type Social History Tobacco Use [...] Upcoming Encounters Date Type Department Care Team ([facility] st Contact Info) Description 05/18/2025 2:00 PM EST Clinical Support [facility] MED & PEDS 505 [place] [address] Thania Hawkins RN 505 [place] [address] documented as of this encounter Visit Diagnoses Diagnosis Hypothyroidism, unspecified type documented in this encounter Additional Health Concerns Assessment Noted Time PHQ-9 Depression Total Score: 22 024 10:31 AM EST documented as of this encounter Care Teams Food Order Delivery Runner Relationship Specialty Start Date End Date Chari Rodriguez MD [address] [place] [address] PCP - General Family Medicine 05/19/12 05/03/25 Waqar Leung CNP 505 [place] [address] PCP - General Family Medicine 05/04/25 documented as of this encounter
--- OUTSIDE RECORDS SUMMARY | 2025-05-05 13:20 | XMS_ITS | Encounter Summary ---
Author Organization [employer] Address 75 [facility] 7t [place] [address] Care Team Providers Care Lockstitch Waistband Setter Name Role Phone Chari Rodriguez MD Primary Care Provider [phone] Waqar Leung CNP Primary Care Provider [phone] Encounter Details Date Type Department Care Team (Late st Contact Info) Description 04/06/2024 Orders Only [facility] CHC MED & PEDS [address] [place] [address] Provider, MD Darron Social History Tobacco Use [...] Upcoming Encounters Date Type Department Care Team ([facility] st Contact Info) Description 05/18/2025 2:00 PM EST Clinical Support [facility] MED & PEDS 505 [place] [address] Thania Hawkins RN 505 [place] [address] documented as of this encounter Procedures Procedure [...] documented as of this encounter Care Teams Lockstitch Waistband Setter Relationship Specialty Start Date End Date Chari Rodriguez MD [address] [place] [address] PCP - General Family Medicine 05/19/12 05/03/25 Waqar Leung CNP 505 [place] [address] PCP - General Family Medicine 05/04/25 documented as of this encounter
--- OUTSIDE RECORDS SUMMARY | 2025-05-05 13:20 | XMS_ITS | Encounter Summary ---
Author Organization [employer] [facility] Address [address] [place] [address] Phone Care Team Providers Care Critical Care Paramedic Name Role Phone Chari Rodriguez MD Primary Care Provider [phone] Encounter Details Date Type Department Care Team (Late st Contact Info) Description 06/27/2023 Procedure Pass [facility] - MRI, [facility] [address] [place] [address] Social History Tobacco Use Types Packs/Day Years [...] 06/27/2023 11:34 AM Imani Giraldo RN * [place] Suicide Severity Rating Scale (Screener/Recent Self-Report) Question [...] Description 06/15/2025 2:30 PM EST Office Visit [facility] Rheumatology [address] [place] [address] Citlali Rodrigez MD [address] [place] [address], [address] [place] [address] documented as of this encounter Visit Diagnoses Not on filedocumented in this encounter Care Teams Critical Care Paramedic Relationship Specialty Start Date End Date Chari Rodriguez MD [address] [place] [address] PCP - General Family Medicine 1/12/22 documented as of this encounter Additional Source Comments The information contained in this document represents components of the legal health record. It is not the complete legal health record.[facility]
--- OUTSIDE RECORDS SUMMARY | 2025-05-05 13:20 | XMS_ITS | Encounter Summary ---
Author Organization [employer] Address 75 [facility] 7t [place] [address] Care Team Providers Care Chemical Equipment Sales Engineer Name Role Phone Chari Rodriguez MD Primary Care Provider [phone] Waqar Leung CNP Primary Care Provider [phone] Reason for Visit * Reason Comments Med Refill Encounter Details Date Type Department Care Team (Late Contact Info) Description 02/19/2023 Refill [facility] CHC MED & PEDS 505 [place], [place] [phone] Chari Rodriguez MD 505 [place] [address] Sore of lower lip Social History Tobacco [...] Department Care Team (Late Contact Info) Description 05/18/2025 2:00 PM EST Clinical Support [facility] CHC MED & PEDS [address] [place] [address] Thania Hawkins, RN 505 [place] [address] documented as of this encounter Visit Diagnoses Diagnosis Sore of lower lip documented in this encounter Additional Health Concerns Assessment Noted Time PHQ-9 Depression Total Score: 18 023 10:15 AM EDT documented as of this encounter Care Teams Chemical Equipment Sales Engineer Relationship Specialty Start Date End Date Chari Rodriguez MD [address] [place] [address] PCP - General Family Medicine 05/19/12 05/03/25 Waqar Leung CNP 505 [place] [address] PCP - General Family Medicine 05/04/25 documented as of this encounter
--- OUTSIDE RECORDS SUMMARY | 2025-05-05 13:20 | XMS_ITS | Encounter Summary ---
Author Organization [employer] Address 75 [facility] 7t [place] [address] Care Team Providers Care Mathematics Faculty Member Name Role Phone Chari Rodriguez MD Primary Care Provider [phone] Waqar Leung CNP Primary Care Provider [phone] Reason for Visit * Reason Onset Date Comments Appointment Request 04/05/2025 Encounter Details Date Type Department Care Team ([facility] st Contact Info) Description 04/05/2025 Telephone [facility] CHC MED & PEDS [address] [place], [place] [phone] Chari Rodriguez MD 505 [place] [address] Appointment Request Social History Tobacco Use Types [...] encounter Miscellaneous Notes * Telephone Encounter - Arben Ramos - 04/05/2025 11:53 AM EDT Tc from pt requesting to r/s sick on site from 04/03. Contact pt at [phone] documented in this encounter Plan of Treatment Upcoming Encounters Date Type Department Care Team ([facility] st Contact Info) Description 05/18/2025 2:00 PM EST Clinical Support [facility] MED & PEDS [address] [place] [address] Thania Hawkins, ALON 505 [place] [address] documented as of this encounter Visit Diagnoses Not on filedocumented in this encounter Additional Health Concerns Assessment Noted Time PHQ-9 Depression Total Score: 13 025 9:59 AM EDT documented as of this encounter Care Teams Mathematics Faculty Member Relationship Specialty Start Date End Date Chari Rodriguez MD [address] [place] [address] PCP - General Family Medicine 05/19/12 05/03/25 Waqar Leung CNP [address] [place] [address] PCP - General Family Medicine 05/04/25 documented as of this encounter
--- OUTSIDE RECORDS SUMMARY | 2025-05-05 13:20 | XMS_ITS | Encounter Summary ---
Author Organization [employer] Address 75 [facility] 7t [place] [address] Care Team Providers Care Machinery Mechanic Name Role Phone Chari Rodriguez MD Primary Care Provider [phone] Waqar Leung CNP Primary Care Provider [phone] Reason for Visit * Reason Onset Date Comments Med Refill 09/12/2024 Encounter Details Date Type Department Care Team (Late st Contact Info) Description 09/12/2024 Telephone [facility] MEDICINE [address] [place] [address] Chari Rodriguez MD 505 [place], [place] [phone] Med Refill Social History Tobacco Use Types [...] 09/13/2024 10:20 AM EDT Medication was filled 3.10.25 TC from pt requesting medication refill. Medications needing refill : traMADol (Ultram) 50 MG tablet To be sent to: [facility] [address] [place] [address] * Telephone Encounter - Alireza Lynch - 09/12/2024 3:25 PM EDT TC from pt requesting medication refill. Medications needing refill : traMADol (Ultram) 50 MG tablet To be sent to: [facility] [place] [address] documented in this encounter Plan of Treatment Upcoming Encounters Date Type Department Care Team ([facility] st Contact Info) Description 05/18/2025 2:00 PM EST Clinical Support [facility] MED & PEDS 505 [place] [address] Thania Hawkins, RN 505 [place] [address] documented as of this encounter Visit Diagnoses Diagnosis Fibromyalgia Unspecified myalgia and myositis documented in this encounter Additional Health Concerns Assessment Noted Time PHQ-9 Depression Total Score: 22 024 11:04 AM EST documented as of this encounter Care Teams Machinery Mechanic Relationship Specialty Start Date End Date Chari Rodriguez MD [address] [place] [address] PCP - General Family Medicine 05/19/12 05/03/25 Waqar Leung CNP 505 [place] [address] PCP - General Family Medicine 05/04/25 documented as of this encounter
--- OUTSIDE RECORDS SUMMARY | 2025-05-05 13:20 | XMS_ITS | Encounter Summary ---
Author Organization [employer] Address 75 [facility] 7t [place] [address] Care Team Providers Care Carpet Technician Name Role Phone Chari Rodriguez MD Primary Care Provider [phone] Waqar Leung CNP Primary Care Provider [phone] Reason for Visit * Reason Onset Date Comments Med Refill 12/16/2024 Encounter Details Date Type Department Care Team ([facility] st Contact Info) Description 12/16/2024 Refill [facility] CHC MED & PEDS 505 [place], [place] [phone] Chari Rodriguez MD 505 [place] [address] Sore of lower lip Social History Tobacco [...] Description 05/18/2025 2:00 PM EST Clinical Support [facility] MED & PEDS 505 [place] [address] Thania Hawkins, ALON 505 [place] [address] documented as of this encounter Visit Diagnoses Diagnosis Sore of lower lip documented in this encounter Additional Health Concerns Assessment Noted Time PHQ-9 Depression Total Score: 13 025 9:59 AM EDT documented as of this encounter Care Teams Carpet Technician Relationship Specialty Start Date End Date Chari Rodriguez MD [address] [place] [address] PCP - General Family Medicine 05/19/12 05/03/25 Waqar Leung CNP 505 [place] [address] PCP - General Family Medicine 05/04/25 documented as of this encounter
--- OUTSIDE RECORDS SUMMARY | 2025-05-05 13:21 | XMS_ITS | Encounter Summary ---
Author Organization [employer] Address 75 [facility] 7t [place] [address] Care Team Providers Care Energy Risk Management Analyst Name Role Phone Chari Rodriguez MD Primary Care Provider Waqar Leung CNP Primary Care Provider [phone] Reason for Visit * Reason Onset Date Comments Nurse Triage 06/25/2023 Encounter Details Date Type Department Care Team (Late st Contact Info) Description 06/25/2023 Telephone [facility] MEDICINE 230 [place] [address] Chari Rodriguez MD 505 [place], [place] [phone] Nurse Triage Social History Tobacco Use Types [...] to pt. pt states seen ER at [facility] on 06/25 for left headache that [...] or new concerns. given appt tomorrow with [facility] at 9:40 for exam and recheck. pt [...] become worse * Telephone Encounter - Jaret Briones - 06/25/2023 9:56 AM EST Patient calling to report ED visit on : Date: 06/24 Hospital: [facility] Seen for: Left [facility] pain and [facility] Description 05/18/2025 2:00 PM EST Clinical Support [facility] CHC MED & PEDS 505 [place] [address] Thania Hawkins RN [address] [place] [address] documented as of this encounter Visit Diagnoses Not on filedocumented in this encounter Additional Health Concerns Assessment Noted Time PHQ-9 Depression Total Score: 18 023 10:15 AM EDT documented as of this encounter Care Teams Energy Risk Management Analyst Relationship Specialty Start Date End Date Chari Rodriguez MD 230 [place] [address] PCP - General Family Medicine 05/19/12 05/03/25 Waqar Leung CNP [address] [place] [address] PCP - General Family Medicine 05/04/25 documented as of this encounter
--- OUTSIDE RECORDS SUMMARY | 2025-05-05 13:21 | XMS_ITS | Encounter Summary ---
Author Organization [facility] Address [address] [facility] [address] [place] [address] Phone Care Team Providers Care Extruder Operator Helper Name Role Phone Chari Rodriguez MD Primary Care Provider [phone] Reason for Visit * Reason Comments Medication Refill Encounter Details Date Type Department Care Team (Late st Contact Info) Description 04/22/2025 Refill [facility] Rheumatology [address] [place] [address] Citlali Rodrigez MD [address] [facility], [address] [place] [address] [email or web address] Medication Refill Social History Tobacco Use Types Packs/Day [...] PM EDT documented as of this encounter Progress Notes * Citlali Rodrigez MD - 04/27/2025 2:39 PM EDT Thanks for the update-awaiting serum vitamin D level * Angelica Pate LPN - 04/27/2025 8:11 AM EDT Patient has been notified * Citlali Rodrigez MD - 04/26/2025 5:23 PM EDT Vitamin D order signed in epic-please make sure not to take vitamin D 50,000 IU for 7 days before getting labs level tested. * Sobia Stewart CMA - 04/26/2025 11:12 AM EDT Patient took her last Vitamin D 50,000 IU last Thursday04/19/25 she believes. Do you want to get a Vitamin D level at her appt 05/04/25? * Magda Turcios - 04/26/2025 9:54 AM EDT Pt called back and LVM, returning call to nurse. * Sobia Stewart CMA - 04/25/2025 11:47 AM EDT Left message for patient to call back * Citlali Rodrigez MD - 2025 12:35 PM EDT Please check when was her last dose of vitamin D 50,000 units taken. * Sobia Stewart CMA - 2025 10:01 AM EDT Rx Care Gap Status - Instructions for Clinical Staff (prescriber discretion applies): > Mismatch review guide > N/a - No action needed Visit Info Last visit: 01/02/2025 Citlali Rodrigez MD - Rheumatology [facility] > Requested f/u: Return in about 4 months (around 05/04/2025) for PLEASE PRINT INFO ON IRON RICHDIET. Upcoming visit: 05/04/2025 Citlali Rodrigez MD - Rheumatology [facility] ACTIONS TAKEN BY Sobia Stewart CMA Vitamins, Minerals, Supplements, OTCs Rx Protocol - ergocalciferol (vitamin D2) Criteria met; renew for up to 12 months. Visit in the past 24 months: Yes Lab Results Component Value Date VITDT 11 (L) 06/22/2024 documented in this encounter Plan of Treatment Upcoming Encounters Date Type Department Care Team (Late st Contact Info) Description 06/15/2025 2:30 PM EST Office Visit [facility] Rheumatology [address] [place] [address] Citlali Rodrigez MD [address] [facility], [address] [place] [address] [email or web address] documented as of this encounter Visit Diagnoses Diagnosis Vitamin D deficiency, unspecified documented in this encounter Care Teams Extruder Operator Helper Relationship Specialty Start Date End Date Chari Rodriguez MD [address] [place] [address] PCP - General Family Medicine 07/17/21 documented as of this encounter Additional Source Comments The information contained in this document represents components of the legal health record. It is not the complete legal health record.[facility]
--- OUTSIDE RECORDS SUMMARY | 2025-05-05 13:21 | XMS_ITS | Encounter Summary ---
Author Organization [employer] Address 75 [facility] 7t [place] [address] Care Team Providers Care Due Diligence Coordinator Name Role Phone Chari Rodriguez MD Primary Care Provider [phone] Waqar Leung CNP Primary Care Provider [phone] Reason for Visit * Reason Onset Date Comments Med Refill 09/07/2023 Encounter Details Date Type Department Care Team ([facility] st Contact Info) Description 09/07/2023 Refill [facility] CHC MED & PEDS [address] [place], [place] [phone] Chari Rodriguez MD 505 [place] [address] Other chronic pain Social History Tobacco Use [...] Description 05/18/2025 2:00 PM EST Clinical Support [facility] CHC MED & PEDS [address] [place] [address] Thania Hawkins, ALON 505 [place] [address] documented as of this encounter Visit Diagnoses Diagnosis Other chronic pain documented in this encounter Additional Health Concerns Assessment Noted Time PHQ-9 Depression Total Score: 22 024 10:31 AM EST documented as of this encounter Care Teams Due Diligence Coordinator Relationship Specialty Start Date End Date Chari Rodriguez MD [address] [place] [address] PCP - General Family Medicine 05/19/12 05/03/25 Waqar Leung CNP 505 [place] [address] PCP - General Family Medicine 05/04/25 documented as of this encounter
--- OUTSIDE RECORDS SUMMARY | 2025-05-05 13:21 | XMS_ITS | Encounter Summary ---
Author Organization [employer] Address 75 [facility] 7t [place] [address] Care Team Providers Care Printed Circuit Board Drafter Name Role Phone Chari Rodriguez MD Primary Care Provider [phone] Waqar Leung CNP Primary Care Provider [phone] Reason for Visit * Reason Onset Date Comments Medication Question 04/15/2023 Encounter Details Date Type Department Care Team ([facility] st Contact Info) Description 04/15/2023 Telephone [facility] CHC MED & PEDS 505 [place], [place] [phone] Chari Rodriguez MD 505 [place], [place] [phone] Medication Question Social History Tobacco Use Types Packs/Day Years Used Date Smoking Tobacco: Every Day Cigarettes Smokeless Tobacco: Never Alcohol Use Standard Drinks/Week Comments Never 0 (1 standard drink = 0.6 oz pur e alcohol) Depression Answer Date Recorded Patient Health Questionnaire-9 Score 18 12/30/2022 Housing Stability Answer Date Recorded What is your housing situation today? I have danitastacie tate 04/13/[address] you [...] family and she needs to travel to [facility] by car. documented in this encounter Plan of Treatment Upcoming Encounters Date Type Department Care Team ([facility] st Contact Info) Description 05/18/2025 2:00 PM EST Clinical Support [facility] MED & PEDS 505 [place] [address] Thania Hawkins RN [address] [place] [address] documented as of this encounter Visit Diagnoses Diagnosis Other chronic pain documented in this encounter Additional Health Concerns Assessment Noted Time PHQ-9 Depression Total Score: 18 023 10:15 AM EDT documented as of this encounter Care Teams Printed Circuit Board Drafter Relationship Specialty Start Date End Date Chari Rodriguez MD [address] [place] [address] PCP - General Family Medicine 05/19/12 05/03/25 Waqar Leung CNP [address] [place] [address] PCP - General Family Medicine 05/04/25 documented as of this encounter
--- OUTSIDE RECORDS SUMMARY | 2025-05-05 13:21 | XMS_ITS | Encounter Summary ---
Author Organization [employer] Address 75 [facility] 7t [place] [address] Care Team Providers Care House Detective Name Role Phone Chari Rodriguez MD Primary Care Provider [phone] Waqar Leung CNP Primary Care Provider [phone] Reason for Visit * Reason Onset Date Comments Med Refill 10/01/2023 Encounter Details Date Type Department Care Team (Late st Contact Info) Description 10/01/2023 Refill [facility] MEDICINE [address] [place] [address] Chari Rodriguez MD 505 [place], [place] [phone] Social History Tobacco Use Types Packs/Day Years [...] Hawkins RN - 10/01/2023 9:27 AM EDT Diversity Specialist checked 10/01/23. Can you please change pt sig, wouldn't let me and there's [address] different directions * Telephone Encounter - Ibeth Lay - 10/01/2023 8:46 AM EDT TC from pt requesting medication refill. Medications needing refill : traMADol (Ultram) 50 MG tablet To be sent to: [facility]/pharmacy #[id number] [address] documented in this encounter Plan of Treatment Upcoming Encounters Date Type Department Care Team ([facility] st Contact Info) Description 05/18/2025 2:00 PM EST Clinical Support [facility] MED & PEDS 505 [place] [address] Thania Hawkins RN 505 [place] [address] documented as of this encounter Visit Diagnoses Not on filedocumented in this encounter Additional Health Concerns Assessment Noted Time PHQ-9 Depression Total Score: 22 024 10:31 AM EST documented as of this encounter Care Teams House Detective Relationship Specialty Start Date End Date Chari Rodriguez MD 230 [place] [address] PCP - General Family Medicine 05/19/12 05/03/25 Waqar Leung CNP 505 [place] [address] PCP - General Family Medicine 05/04/25 documented as of this encounter
--- OUTSIDE RECORDS SUMMARY | 2025-05-05 13:21 | XMS_ITS | Clinical Summary ---
Author Organization [facility] Address [address] [place] [phone] Phone Care Team Providers Care Retail Manager In Training Name Role Phone Chari Rodriguez MD Primary Care Provider [phone] Allergies Active Allergy Reactions Criticality Noted Date Comments Sulfamethoxazole-Trimethoprim Rash Low 2021 Trimethoprim Rash Low 12/16/2021 Medications biotin 10,000 mcg Cap Take by mouth. Activ e ascorbic acid/collagen hydr (COLLAGEN PLUS VITAMIN C ORAL) Take 1,000 mcg by mouth daily. Active levothyroxine (SYNTHROID, LEVOTHROID) 50 MCG tablet Take 50 mcg by mouth daily. 3 Active traMADoL (ULTRAM) 50 mg tablet Take 50 mg by mouth every 8 (eight) hours as needed. 3 Active cyanocobalamin, vitamin B-12, 1000 MCG tablet Take 1,000 mcg by mouth every morning. 3 Active DULoxetine (CYMBALTA) 30 MG capsule Take 1 capsule by mouth 2 (two) times a day. 3 Active prazosin (MINIPRESS) 2 MG capsule Take 2 mg by mouth nightly at bedtime. 3 Active SUMAtriptan (IMITREX) 25 MG tablet Take 25 mg by mouth as needed. 3 Active DULoxetine (CYMBALTA) 20 MG capsule Take 20 mg by mouth 2 (two) times a day. Active simvastatin (ZOCOR) 10 MG tablet Take 10 mg by mouth. 4 Active valACYclovir (VALTREX) 1000 MG tablet Take 1 tablet by mouth 2 (two) times a day. 3 Active traZODone (DESYREL) 50 MG tablet Take 50 mg by mouth nightly at bedtime. 4 Active belimumab (BENLYSTA) 200 mg/mL auto injectorIndicat ions:Systemic lupus erythematosus, unspecified SLE type, unspecified organ involvement status Inject 1 mL (200 mg total) under the skin once a week. 4 mL 11 4 Active empty container MiscIndications :Systemic lupus erythematosus, unspecified SLE type, unspecified organ involvement status,Long-ter m current use of belimumab 1 Box by Miscellaneous route once a week. 1 each 1 4 Active hydroxychloroqu ine (PLAQUENIL) 200 mg tabletIndicatio ns:Systemic lupus erythematosus, unspecified SLE type, unspecified organ involvement status,Keratoco njunctivitis sicca of both eyes not due to Sjogren's syndrome Take 1 tablet (200 mg total) by mouth 2 (two) times a day. 180 tablet 3 5 Active topiramate (TOPAMAX) 100 MG tablet Take 100 mg by mouth daily. 5 Active melatonin 5 mg Tab Take 5 mg by mouth nightly at bedtime. at bedtime. 5 Active ergocalciferol (DRISDOL) 50,000 unit capsuleIndicati ons:Vitamin D deficiency, unspecified TAKE 1 CAPSULE BY MOUTH ONE TIME PER WEEK 12 capsule 5 Active Active Problems Problem Noted Date Diagnosed Date Memory loss due to medical condition 09/30/2024 Assessment & Plan (10/02/2024 10:26 AM EDT): Due to her ongoing and worsening/troubling memory loss I advised her to get formal memory evaluation to direct appropriate intervention reducing the loss Quadriceps weakness 09/30/2024 Weakness of both quadriceps muscles 09/30/2024 Assessment & Plan (10/02/2024 10:27 AM EDT): Use warm packs versus warm shower prior to gentle, regular exercises-palm flat with pictures and detailed instructions printed for home use today. Class 1 obesity due to exces s calories with serious comorbidity and body mass index (BMI) of 30.0 to 30.9 in adult 09/30/2024 Assessment & Plan (01/02/2025 4:33 PM EDT): Congratulations on losing 5 pounds from 170 on 06/22/2024 down to 165 today and keep it off. Continue diligent portion control. Limit concentrated sugars, saturated fats and calories in the diet. Keep well-hydrated. If unable to achieve expected goal consider formal dietary/nutritional support. Assessment & Plan (10/02/2024 10:28 AM EDT): Congratulations on losing 5 pounds from 170 on 06/22/2024 down to 165 today and keep it off. Continue diligent portion control. Limit concentrated sugars, saturated fats and calories in the diet. Keep well-hydrated. If unable to achieve expected goal consider formal dietary/nutritional support. Skin rash 06/22/2024 Assessment & Plan (07/04/2024 4:22 PM EST): Due to Lacy/livedoid pattern of skin lesions on her flanks I took the liberty of getting additional tests to check her for antiphospholipid antibody syndrome. Long-term current use of belimumab 06/22/2024 Assessment & Plan (01/02/2025 4:33 PM EDT): Reviewed with her the need for holding Benlysta (belimumab) injections whenever running fever, feeling sick or taking antibiotics. Avoid sick contacts. Monitor for any signs of injection reactions and infection. Make sure to inform any new BRII GRAHAM, JUSTOWRITER OPERATOR about chronic treatment with Benlysta particularly in emergency situations. Assessment & Plan (10/02/2024 10:24 AM EDT): Reviewed with her the need for holding Benlysta (belimumab) injections whenever running fever, feeling sick or taking antibiotics. Avoid sick contacts. Monitor for any signs of injection reactions and infection. Make sure to inform any new BRII GRAHAM, JUSTOWRITER OPERATOR about chronic treatment with Benlysta particularly in emergency situations. Assessment & Plan (07/04/2024 4:28 PM EST): Instructed to call for 1st dose administration in the office once approved and delivered to her home to make sure that she does not suffer from allergic reaction and knows proper technique of administering and disposing it. Reviewed with her the need for holding Benlysta (belimumab) injections whenever running fever, feeling sick or taking antibiotics. Avoid sick contacts. Monitor for any signs of injection reactions and infection. Make sure to inform any new MD PA, JUSTOWRITER OPERATOR about chronic treatment with Benlysta particularly in emergency situations. On statin therapy 12/10/2023 Assessment & Plan (06/22/2024 12:04 PM EST): Monitor for muscle tenderness, swelling and weakness Assessment & Plan (03/14/2024 9:29 AM EDT): Monitor for muscle tenderness, swelling and weakness Assessment & Plan (12/10/2023 11:35 AM EDT): Monitor for muscle tenderness, swelling and weakness Rotator cuff tendonitis, left 08/27/2023 Assessment & Plan (03/15/2024 8:43 PM EDT): Use warm packs versus warm shower prior to gentle, regular ROM, stretching and muscle strengthening. Examples of appropriate exercises with pictures and detailed instructions printed for home use today. She may benefit from topical creams/gels such as Voltaren, Biofreeze, Arnica versus medicated patches such as Salonpas or IcyHot patch 2-3 times daily and if needed at bedtime. In case symptoms do not improve or worsen may need to get formal PT and/for local steroid injection. Assessment & Plan (08/30/2023 11:28 AM EST): Use warm packs versus warm shower prior to gentle, regular ROM, stretching and muscle strengthening. Examples of appropriate exercises with pictures and detailed instructions printed for home use today. She may benefit from topical creams/gels such as Voltaren, Biofreeze, Arnica versus medicated patches such as Salonpas or IcyHot patch 2-3 times daily and if needed at bedtime. In case symptoms do not improve or worsen may need to get formal PT and/for local steroid injection. 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 Continue close follow-up with neuro-echo vascular technologist. Assessment & Plan (09/30/2024 4:10 PM EDT): Unclear etiology but possible due to chronic left 6 cranial neuropathy versus rare but possible carotid artery dissection versus sarcoidosis, MS, neuromyelitis optica, optic perineuritis. Continue close follow-up with neuro-echo vascular technologist. Assessment & Plan (06/22/2024 12:04 PM EST): Unclear etiology but possible due to chronic left 6 cranial neuropathy versus rare but possible carotid artery dissection versus sarcoidosis, MS, neuromyelitis optica, optic perineuritis. Continue close follow-up with neuro-echo vascular technologist. Assessment & Plan (03/15/2024 8:47 PM EDT): Unclear etiology but possible due to chronic left 6 cranial neuropathy versus rare but possible carotid artery dissection versus sarcoidosis, MS, neuromyelitis optica, optic perineuritis. Continue close follow-up with neuro-echo vascular technologist. Assessment & Plan (12/10/2023 11:28 AM EDT): Unclear etiology and but possible due to chronic left 6 cranial neuropathy versus rare but possible carotid artery dissection versus sarcoidosis, MS, neuromyelitis optica, optic perineuritis. Continue close follow-up with neuro-echo vascular technologist. Assessment & Plan (08/27/2023 1:06 PM EST): Unclear etiology and but possible due to chronic left 6 cranial neuropathy versus rare but possible carotid artery dissection versus sarcoidosis, MS, neuromyelitis optica, optic perineuritis. Continue close follow-up with neuro-echo vascular technologist. Assessment & Plan (07/23/2023 11:37 PM EST): Unclear etiology and but possible due to chronic left 6 cranial neuropathy versus rare but possible carotid artery dissection versus sarcoidosis, MS, neuromyelitis optica, optic perineuritis. Continue close follow-up with neuro-echo vascular technologist. Long-term use of Plaquenil 01/19/2023 Assessment & Plan (01/02/2025 4:32 PM EDT): Encouraged to take carefully with food and use daily sun protection all year- round or at least during spring and summer months versus when traveling to [facility] or [facility]. Follow closely with echo vascular technologist at least every 12 months. Assessment & Plan (10/02/2024 10:23 AM EDT): Encouraged to take carefully with food and use daily sun protection all year- round or at least during spring and summer months versus when traveling to [facility] or [facility]. Follow closely with echo vascular technologist at least every 12 months. Assessment & Plan (06/22/2024 12:04 PM EST): Encouraged to take carefully with food and use daily sun protection all year- round or at least during spring and summer months versus when traveling to [facility] or [facility]. Assessment & Plan (03/14/2024 9:14 AM EDT): Encouraged to take carefully with food and use daily sun protection all year- round or at least during spring and summer months versus when traveling to [facility] or [facility]. Assessment & Plan (08/27/2023 1:05 PM EST): Encouraged to take carefully with food and use daily sun protection all year- round or at least during spring and summer months versus when traveling to [facility] or [facility]. Assessment & Plan (07/23/2023 11:28 AM EST): Encouraged to take carefully with food and use daily sun protection all year- round or at least during spring and summer months versus when traveling to [facility] or [place]. Assessment & Plan (01/27/2023 4:15 PM EDT): Encouraged to take carefully with food and use daily sun protection all year- round or at least during spring and summer months versus when traveling to [facility] or [facility]. Other headache syndrome 01/19/2023 Assessment & Plan (01/02/2025 4:32 PM EDT): Keep well-hydrated. Well-balanced nutritionally diet. Regular relaxation/meditation sessions Work on getting restful sleep. Keep diary of headaches with triggering factors and location, severity length of episode etc. to review with treating physician. Get brain and orbital MRI to check for interval changes and follow-up closely with neurologist and echo vascular technologist as instructed. Assessment & Plan (09/30/2024 4:10 PM EDT): Keep well-hydrated. Well-balanced nutritionally diet. Regular relaxation/meditation sessions Work on getting restful sleep. Keep diary of headaches with triggering factors and location, severity length of episode etc. to review with treating physician. Get brain and orbital MRI to check for interval changes and follow-up closely with neurologist and echo vascular technologist as instructed. Assessment & Plan (06/22/2024 12:04 PM EST): Keep well-hydrated. Well-balanced nutritionally diet. Regular relaxation/meditation sessions Work on getting restful sleep. Keep diary of headaches with triggering factors and location, severity length of episode etc. to review with treating physician. Get brain and orbital MRI to check for interval changes and follow-up closely with neurologist and echo vascular technologist as instructed. Assessment & Plan (03/15/2024 8:47 PM EDT): Keep well-hydrated. Well-balanced nutritionally diet. Regular relaxation/meditation sessions Work on getting restful sleep. Keep diary of headaches with triggering factors and location, severity length of episode etc. to review with treating physician. Get brain and orbital MRI to check for interval changes and follow-up closely with neurologist and echo vascular technologist as instructed. Assessment & Plan (12/13/2023 10:29 PM EDT): Keep well-hydrated. Well-balanced nutritionally diet. Regular relaxation/meditation sessions Work on getting restful sleep. Keep diary of headaches with triggering factors and location, severity length of episode etc. to review with treating physician. Follow closely with treating neurologist and get brain MRI as scheduled on 12/12/2023. Assessment & Plan (08/27/2023 1:06 PM EST): Due to very severe headache at 9/10 with ongoing double vision I contacted her neurologist office and was able to review it with covering neurologist-Dr. Almeida who suggested sending her to [facility] ER if headache is not improving yet Keep well-hydrated. Well-balanced nutritionally diet. Regular relaxation/meditation sessions Work on getting restful sleep. Keep diary of headaches with triggering factors and location, severity length of episode etc. to review with treating physician. Assessment & Plan (07/23/2023 11:32 PM EST): Due to very severe headache at 9/10 with ongoing double vision I contacted her neurologist office and was able to review it with covering neurologist-Dr. Almeida who suggested sending her to [facility] ER if headache is not improving red Keep well-hydrated. Well-balanced nutritionally diet. Regular relaxation/meditation sessions Work on getting restful sleep. Keep diary of headaches with triggering factors and location, severity length of episode etc. to review with treating physician. Assessment & Plan (01/27/2023 4:12 PM EDT): Keep well-hydrated. Well-balanced nutritionally diet. Regular relaxation/meditation sessions Work on getting restful sleep. Keep diary of headaches with triggering factors and location, severity length of episode etc. to review with treating physician. Systemic lupus erythematosus 07/21/2022 Assessment & Plan (01/31/2025 11:01 PM EDT): She came in initially in December 2021 with a skin biopsy confirmed discoid lupus diagnosis however further work-up revealed highly positive NAE and dsDNA, SSA, SSB, AUDIO OPERATOR antibodies luckily without proteinuria, hematuria or other major organ system involvement at this time. She took Plaquenil in the past and reports blurred vision caused by that was the reason for her to stop it. I was able to read previous ophthalmological report that did not detect signs of Plaquenil toxicity and conditionally allow her retry and continue with close monitoring. She carefully continues Plaquenil though reports blurriness. Most recent ophthalmologic checkup in August 2024 has not revealed Plaquenil toxicity per her report. Due to positive dsDNA I also requested consultation with clerical office that may take time to arrange for since she has not seen any clerical office yet. I provided her previously with pamphlet on CellCept (mycophenolate acid) and offered her another option Imuran (azathioprine) after new set of lab work including TPMT level returned normal. I have explained to her that it needs to be monitored very closely-every 2 weeks for possible hematologic abnormalities. Another option may be IV versus SC Benlysta (belimumab) versus Saphnelo (anifrolumab) She is asked to get a new set of lab work today and follow-up closely with her neurologist regarding ongoing headaches. She tolerates weekly subcutaneous Benlysta (belimumab) and finds it a bit helpful in reducing inflammation within her body. Assessment & Plan (10/02/2024 10:18 AM EDT): She came in initially in December 2021 with a skin biopsy confirmed discoid lupus diagnosis however further work-up revealed highly positive NAE and dsDNA, SSA, SSB, AUDIO OPERATOR antibodies luckily without proteinuria, hematuria or other major organ system involvement at this time. She took Plaquenil in the past and reports blurred vision caused by that was the reason for her to stop it. I was able to read previous ophthalmological report that did not detect signs of Plaquenil toxicity and conditionally allow her retry and continue with close monitoring. She carefully continues Plaquenil though reports blurriness. Most recent ophthalmologic checkup in August 2024 has not revealed Plaquenil toxicity per her report. Due to positive dsDNA I also requested consultation with clerical office that may take time to arrange for since she has not seen any clerical office yet. I provided her previously with pamphlet on CellCept (mycophenolate acid) and offered her another option Imuran (azathioprine) after new set of lab work including TPMT level returned normal. I have explained to her that it needs to be monitored very closely-every 2 weeks for possible hematologic abnormalities. Another option may be IV versus SC Benlysta (belimumab) versus Saphnelo (anifrolumab) She is asked to get a new set of lab work today and follow-up closely with her neurologist regarding ongoing headaches despite Medrol dose pack. I will contact her neurologist-Dr. Aayush Bustillo to discuss other therapeutic options for her recurrent migraine headaches then Medrol Dosepak particularly consideration for Botox injection that she reports were helpful for her in the past.. She tolerates weekly subcutaneous Benlysta (belimumab) [place] and finds it a bit helpful in reducing inflammation within her body. Assessment & Plan (07/04/2024 4:21 PM EST): She came in initially in December 2021 with a skin biopsy confirmed discoid lupus diagnosis however further work-up revealed highly positive NAE and dsDNA, SSA, SSB, AUDIO OPERATOR antibodies luckily without proteinuria, hematuria or other major organ system involvement at this time. She took Plaquenil in the past and reports blurred vision caused by that was the reason for her to stop it. I was able to read previous ophthalmological report that did not detect signs of Plaquenil toxicity and conditionally allow her retry and continue with close monitoring. She carefully continues Plaquenil though reports blurriness. She needs to follow closely with echo vascular technologist and neurologist as scheduled in August 2024. Due to positive dsDNA I also requested consultation with clerical office that may take time to arrange for since she has not seen any clerical office yet. I provided her previously with pamphlet on CellCept (mycophenolate acid) and offered her another option Imuran (azathioprine) after new set of lab work including TPMT level returned normal. I have explained to her that it needs to be monitored very closely-every 2 weeks for possible hematologic abnormalities. Another option may be IV versus SC Benlysta (belimumab) versus Saphnelo (anifrolumab) She is asked to get a new set of lab work today and follow-up closely with her neurologist regarding ongoing headaches. She read pamphlets on Benlysta in the past and is willing to try it if approved by her insurance. She is up to date on her vaccination against yearly influenza, COVID and pneumonia prior to starting Benlysta. Assessment & Plan (03/15/2024 8:52 PM EDT): She came in initially in December 2021 with a skin biopsy confirmed discoid lupus diagnosis however further work-up revealed highly positive NAE and dsDNA, SSA, SSB, AUDIO OPERATOR antibodies luckily without proteinuria, hematuria or other major organ system involvement at this time. She took Plaquenil in the past and reports blurred vision caused by that was the reason for her to stop it. I was able to read previous ophthalmological report that did not detect signs of Plaquenil toxicity and conditionally allow her retry and continue with close monitoring. She carefully continues Plaquenil though reports blurriness. She needs to follow closely with echo vascular technologist and neurologist as scheduled in April 2024. Due to positive dsDNA I also requested consultation with clerical office that may take time to arrange for since she has not seen any clerical office yet. I provided her previously with pamphlet on CellCept (mycophenolate acid) and offered her another option Imuran (azathioprine) after new set of lab work including TPMT level returned normal. I have explained to her that it needs to be monitored very closely-every 2 weeks for possible hematologic abnormalities. Another option may be IV versus SC Benlysta (belimumab) versus Saphnelo (anifrolumab) She is asked to get a new set of lab work today and follow-up closely with her neurologist regarding ongoing headaches. She read pamphlets on Benlysta in the past and is willing to try it if approved by her insurance. I have informed her that she should be up to date on her vaccination against yearly influenza, COVID and pneumonia prior to starting Benlysta. Assessment & Plan (12/10/2023 11:28 AM EDT): She came in initially in December 2021 with a skin biopsy confirmed discoid lupus diagnosis however further work-up revealed highly positive NAE and dsDNA, SSA, SSB, AUDIO OPERATOR antibodies luckily without proteinuria, hematuria or other major organ system involvement at this time. She took Plaquenil in the past and reports blurred vision caused by that was the reason for her to stop it. I was able to read previous ophthalmological report that did not detect signs of Plaquenil toxicity and conditionally allow her retry and continue with close monitoring. She is willing to carefully retry Plaquenil though reports blurriness. I have asked her to re- check with her echo vascular technologist. She needs to follow closely with echo vascular technologist and neurologist-I requested copies of consult notes for review and if needed discussion regarding her best management options. Due to positive dsDNA I also requested consultation with clerical office that may take time to arrange for since she has not seen any clerical office yet. I provided her previously with pamphlet on CellCept (mycophenolate acid) and offered her another option Imuran (azathioprine) after new set of lab work including TPMT level returned normal. I have explained to her that it needs to be monitored very closely-every 2 weeks for possible hematologic abnormalities. Another option may be IV versus SC Benlysta (belimumab) versus Saphnelo (anifrolumab) She is asked to get a new set of lab work today and follow-up closely with her neurologist regarding ongoing headaches. Assessment & Plan (08/30/2023 11:26 AM EST): She came in initially in December 2021 with a skin biopsy confirmed discoid lupus diagnosis however further work-up revealed highly positive NAE and dsDNA, SSA, SSB, AUDIO OPERATOR antibodies luckily without proteinuria, hematuria or other major organ system involvement at this time. She took Plaquenil in the past and reports blurred vision caused by that was the reason for her to stop it. I was able to read previous ophthalmological report that did not detect signs of Plaquenil toxicity and conditionally allow her retry and continue with close monitoring. She is willing to carefully retry Plaquenil though reports blurriness. I have asked her to re- check with her echo vascular technologist. She needs to follow closely with echo vascular technologist and neurologist-I requested copies of consult notes for review and if needed discussion regarding her best management options. Due to positive dsDNA I also requested consultation with clerical office that may take time to arrange for since she has not seen any clerical office yet. I provided her previously with pamphlet on CellCept (mycophenolate acid) and offered her another option Imuran (azathioprine) after new set of lab work including TPMT level returned normal. I have explained to her that it needs to be monitored very closely-every 2 weeks for possible hematologic abnormalities. Another option may be IV versus SC Benlysta (belimumab) versus Saphnelo (anifrolumab) She is asked to get a new set of lab work today and follow-up closely with her neurologist regarding ongoing headaches. Assessment & Plan (07/23/2023 11:40 PM EST): She came in initially in December 2021 with a skin biopsy confirmed discoid lupus diagnosis however further work-up revealed highly positive NAE and dsDNA, SSA, SSB, AUDIO OPERATOR antibodies luckily without proteinuria, hematuria or other major organ system involvement at this time. She took Plaquenil in the past and reports blurred vision caused by that was the reason for her to stop it. I was able to read previous ophthalmological report that did not detect signs of Plaquenil toxicity and conditionally allow her retry and continue with close monitoring. She is willing to carefully retry Plaquenil though reports blurriness. I have asked her to re- check with her echo vascular technologist. I provided her previously with pamphlet on CellCept (mycophenolate acid) and offered her another option Imuran (azathioprine) after new set of lab work including TPMT level returned normal. I have explained to her that it needs to be monitored very closely-every 2 weeks for possible hematologic abnormalities. Another option may be IV versus SC Benlysta (belimumab) versus Saphnelo (anifrolumab) She is asked to get a new set of lab work today and follow-up closely with her neurologist regarding ongoing headache that is reminiscent headache upon admission to [facility] on 06/29/2023 Assessment & Plan (01/19/2023 11:47 AM EDT): She came in initially in December 2021 with a skin biopsy confirmed discoid lupus diagnosis however further work-up revealed highly positive NAE and dsDNA, SSA, SSB, AUDIO OPERATOR antibodies luckily without proteinuria, hematuria or other major organ system involvement at this time. She took Plaquenil in the past and reports blurred vision caused by that was the reason for her to stop it. I was able to read previous ophthalmological report that did not detect signs of Plaquenil toxicity and conditionally allow her retry and continue with close monitoring. She is willing to carefully retry Plaquenil though reports blurriness. I have asked her to re- check with her echo vascular technologist. I provided her previously with pamphlet on CellCept (mycophenolate acid) and today offered her another option Imuran (azathioprine) after new set of lab work including TPMT level returned normal. I have explained to her that it needs to be monitored very closely-every 2 weeks for possible hematologic abnormalities. Another option may be IV versus SC Benlysta (belimumab) versus Saphnelo (anifrolumab) Assessment & Plan (09/09/2022 5:05 PM EST): She came in initially in December 2021 with a skin biopsy confirmed discoid lupus diagnosis however further work-up revealed highly positive NAE and dsDNA, SSA, SSB, AUDIO OPERATOR antibodies luckily without proteinuria, hematuria or other major organ system involvement at this time. She took Plaquenil in the past and reports blurred vision caused by that was the reason for her to stop it. I was able to read previous ophthalmological report that did not detect signs of Plaquenil toxicity and conditionally allow her retry and continue with close monitoring. She is willing to carefully retry Plaquenil though reports blurriness. I have asked her to re- check with her echo vascular technologist. I provided her previously with pamphlet on CellCept (mycophenolate acid) and today offered her another option Imuran (azathioprine) after new set of lab work including TPMT level returned normal. I have explained to her that it needs to be monitored very closely-every 2 weeks for possible hematologic abnormalities. Another option may be IV versus SC Benlysta (belimumab) versus Saphnelo (anifrolumab) Assessment & Plan (07/22/2022 3:27 PM EST): She came in initially in December 2021 with a skin biopsy confirmed discoid lupus diagnosis however further work-up revealed highly positive NAE and dsDNA, SSA, SSB, AUDIO OPERATOR antibodies luckily without proteinuria, hematuria or other major organ system involvement at this time. She took Plaquenil in the past and reports blurred vision caused by that was the reason for her to stop it. I was not able to review details of the ophthalmological evaluations despite written release to her echo vascular technologist. She is not willing to retry Plaquenil. I provided her previously with pamphlet on CellCept (mycophenolate acid) and today offered her another option Imuran (azathioprine) after new set of lab work including TPMT level to make sure that she does not have an increased risk for complications while taking Imuran. Acquired hypothyroidism 07/21/2022 Assessment & Plan (01/19/2023 11:48 AM EDT): Euthyroid on current thyroid replacement therapy-close monitoring as directed by prescribing physician. Assessment & Plan (09/09/2022 4:57 PM EST): Euthyroid on current thyroid replacement therapy-close monitoring as directed by prescribing physician. Assessment & Plan (07/22/2022 3:22 PM EST): TSH requested to make sure that there is no need for adjustment of thyroid hormone replacement dose Cold sensitivity 07/21/2022 Assessment & Plan (09/01/2022 9:32 AM EST): Dress in layers and avoid prolonged cold exposure. Continue gentle, regular exercise routine. Assessment & Plan (07/22/2022 3:30 PM EST): Dress in layers and avoid prolonged cold exposure. Continue gentle, regular exercise routine. Discoid lupus 12/18/2021 Assessment & Plan (12/18/2021 10:28 PM EDT): I requested release of medical records including dermatological care and skin biopsy in addition to rheumatological care-last seen in 2019 and records from her echo vascular technologist pertinent to Plaquenil administration. She also reported [...] stressed particularly during spring and summer months. Vitamin D insufficiency 12/18/2021 Assessment & Plan (01/02/2025 4:31 PM EDT): Due to low serum level at 11 (30-60) on 06/22/2024 I prescribed her vitamin D 50,000 units weekly to bring it into optimal range: 40-45 ng/ml Assessment & Plan (10/02/2024 10:20 AM EDT): Due to low serum level at 11 (30-60) on 06/22/2024 I prescribed her vitamin D 50,000 units weekly to bring it into optimal range: 40-45 ng/ml Assessment & Plan (06/22/2024 12:03 PM EST): Serum level requested to make sure she does not require adjustment in supplementation to keep it in optimal range: 40-45 ng/ml Assessment & Plan (07/22/2022 3:22 PM EST): Serum level requested to make sure she does not require adjustment in supplementation to keep it in optimal range: 40-45 ng/ml Assessment & Plan (12/18/2021 10:23 PM EDT): Serum level requested to make sure she does not require ongoing supplementation to keep it in optimal range: 40-45 ng/ml Chronic fatigue 12/18/2021 Assessment & Plan (01/02/2025 4:31 PM EDT): Balance rest and activity. Sleep hygiene. Proper hydration and well-balanced nutritionally diet. Gentle, regular exercise routine. Work on complete smoking cessation EDMUNDO. Avoid falls, injuries, overuse and sick contacts. Follow age-appropriate screenings and preventive strategies. Carefully start walking gradually building up time up to a goal of 45-60 minutes 5-6 times a week. Regular engagement in hobbies/favorite activities. Assessment & Plan (12/18/2021 10:39 PM EDT): Balance rest and activity. Sleep hygiene. Proper hydration and well-balanced nutritionally diet. Gentle, regular exercise routine. Work on complete smoking cessation EDMUNDO. Avoid falls, injuries, overuse and sick contacts. Follow age-appropriate screenings and preventive strategies. Carefully start walking gradually building up time up to a goal of 45-60 minutes 5-6 times a week. Regular engagement in hobbies/favorite activities. Keratoconjunctivitis sicca not due to Sjogren's syndrome 12/18/2021 Assessment & Plan (01/02/2025 4:32 PM EDT): Keep well-hydrated. Avoid spicy and acidic foods. Diligent eyes and mouth hygiene. Regular ocular and dental checkups. Assessment & Plan (09/30/2024 4:10 PM EDT): Keep well-hydrated. Avoid spicy and acidic foods. Diligent eyes and mouth hygiene. Regular ocular and dental checkups. Assessment & Plan (06/22/2024 12:04 PM EST): Keep well-hydrated. Avoid spicy and acidic foods. Diligent eyes and mouth hygiene. Regular ocular and dental checkups. Assessment & Plan (03/14/2024 9:11 AM EDT): Keep well-hydrated. Avoid spicy and acidic foods. Diligent eyes and mouth hygiene. Regular ocular and dental checkups. Assessment & Plan (12/10/2023 11:28 AM EDT): Keep well-hydrated. Avoid spicy and acidic foods. Diligent eyes and mouth hygiene. Regular ocular and dental checkups. Assessment & Plan (08/27/2023 1:05 PM EST): Keep well-hydrated. Avoid spicy and acidic foods. Diligent eyes and mouth hygiene. Regular ocular and dental checkups. Assessment & Plan (07/23/2023 11:27 AM EST): Keep well-hydrated. Avoid spicy and acidic foods. Diligent eyes and mouth hygiene. Regular ocular and dental checkups. Assessment & Plan (01/19/2023 11:48 AM EDT): Keep well-hydrated. Avoid spicy and acidic foods. Diligent eyes and mouth hygiene. Regular ocular and dental checkups. Assessment & Plan (09/01/2022 9:33 AM EST): Keep well-hydrated. Avoid spicy and acidic foods. Diligent eyes and mouth hygiene. Regular ocular and dental checkups. Assessment & Plan (07/22/2022 3:28 PM EST): Keep well-hydrated. Avoid spicy and acidic foods. Diligent eyes and mouth hygiene. Regular ocular and dental checkups. Assessment & Plan (12/18/2021 10:30 PM EDT): Keep well-hydrated. Avoid spicy and acidic foods. Diligent eyes and mouth hygiene. Regular ocular and dental checkups. Tobacco dependence 12/18/2021 Assessment & Plan (01/02/2025 4:34 PM EDT): I have spent at least 3 minutes [...] in addition to multiple cosmetic ill effects. Unfortunately she was not able to quit smoking as planned therefore I provided her with a free telephonic cigarette smoking cessation service by callin7-024-CBOS-NOW She admits that she has not tried that service yet and I have encouraged her to give it a try. She admitted that she would love to travel to [place] therefore I have commended her to start saving for it by putting the money saved from not smoking cigarettes toward the cost of trip to [place]. Assessment & Plan (10/02/2024 10:22 AM EDT): I have spent at least 3 minutes [...] in addition to multiple cosmetic ill effects. Unfortunately she was not able to quit smoking as planned therefore I provided her with a free telephonic cigarette smoking cessation service by callin She admits that she has not tried that service yet and I have encouraged her to give it a try. She admitted that she would love to travel to [place] therefore I have commended her to start saving for it by putting the money saved from not smoking cigarettes toward the cost of trip to [place]. Assessment & Plan (06/22/2024 12:04 PM EST): I have spent at least 3 minutes [...] in addition to multiple cosmetic ill effects. Unfortunately she was not able to quit smoking as planned by 01/03/2024 therefore I provided her with a free telephonic cigarette smoking cessation service by callin Assessment & Plan (03/15/2024 8:45 PM EDT): I have spent at least 3 minutes [...] in addition to multiple cosmetic ill effects. Unfortunately she was not able to quit smoking as planned by 01/03/2024 therefore I provided her with a free telephonic cigarette smoking cessation service by callin6-947-MIWO-NOW Assessment & Plan (12/13/2023 10:28 PM EDT): I have spent at least 3 minutes [...] in addition to multiple cosmetic ill effects. I congratulated her on her establishment of due date for complete smoking cessation by 01/03/2024 and wished her full success. Assessment & Plan (08/27/2023 1:05 PM EST): I have spent at least 3 minutes [...] effects. She may try contacting her insurance sales representative versus PCPs office regarding help from cigarette smoking cessation specialist. She could not tolerate mood changes as she attempted to quit recently and would benefit from civil engineering specialist help. Call - that is free service available nationally for people who struggle with cigarette smoking cessation. Assessment & Plan (07/23/2023 11:27 AM EST): I have spent at least 3 minutes [...] effects. She may try contacting her insurance sales representative versus PCPs office regarding help from cigarette smoking cessation specialist. She could not tolerate mood changes as she attempted to quit recently and would benefit from civil engineering specialist help. Call 5-407-ZXQE-NOW that is free service available nationally for people who struggle with cigarette smoking cessation. Assessment & Plan (01/27/2023 4:14 PM EDT): I have spent at least 3 minutes [...] effects. She may try contacting her insurance sales representative versus PCPs office regarding help from cigarette smoking cessation specialist. She could not tolerate mood changes as she attempted to quit recently and would benefit from civil engineering specialist help. Call 5-985-CRFI-NOW that is free service available nationally for people who struggle with cigarette smoking cessation. Assessment & Plan (09/09/2022 5:06 PM EST): I have spent at least 3 minutes [...] in addition to multiple cosmetic ill effects. I provided her with a pamphlet on quit smoking study offered by [facility]al [facility] of [facility] to contact Research Coordinator Richie Christianson at [phone]. Alternatively she may try contacting her insurance sales representative versus PCPs office regarding help from cigarette smoking cessation specialist. She could not tolerate mood changes as she attempted to quit recently and would benefit from civil engineering specialist help. Assessment & Plan (07/22/2022 3:29 PM EST): I have spent at least 3 minutes [...] in addition to multiple cosmetic ill effects. I provided her with a pamphlet on quit smoking study offered by [facility] of [facility] of [facility] to contact Research Coordinator Richie Christianson at [phone]. Alternatively she may try contacting her insurance sales representative versus PCPs office regarding help from cigarette smoking cessation specialist. She could not tolerate mood changes as she attempted to quit recently and would benefit from civil engineering specialist help. Assessment & Plan (12/18/2021 10:34 PM EDT): I have spent at least 3 minutes [...] in addition to multiple cosmetic ill effects. I provided her with a pamphlet on quit smoking study offered by [facility] of [facility] to contact Research Coordinator Richie Christianson at [phone]. Alternatively she may try contacting her insurance sales representative versus PCPs office regarding help from cigarette smoking cessation specialist. Neck pain, chronic 12/18/2021 Assessment & Plan (12/18/2021 10:40 PM EDT): Proper posture and neck support during the day and for nighttime. Use warm pack versus warm shower prior to gentle, regular exercises-examples of exercises with pictures and detailed instructions printed for home use today in addition to referral to formal PT Rotator cuff arthropathy of left shoulder 2021 Assessment & Plan (03/14/2024 9:30 AM EDT): Use warm pack versus warm shower prior to gentle, regular exercising-examples of appropriate exercises with pictures and detailed instructions printed for home use today and formal PT requested. Avoid repetitive pulling, pushing, heavy lifting, falls or injuries. She may benefit from topical products such as Arnica, Biofreeze, Voltaren versus medicated patches such as Salonpas or IcyHot patches applied 2-3 times daily and if needed at bedtime x 3 weeks. If not better despite above measures may need to consider local steroid injection. Assessment & Plan (12/18/2021 10:30 PM EDT): Use warm pack versus warm shower prior to gentle, regular exercising-examples of appropriate exercises with pictures and detailed instructions printed for home use today and formal PT requested. Avoid repetitive pulling, pushing, heavy lifting, falls or injuries. She may benefit from topical products such as Arnica, Biofreeze, Voltaren versus medicated patches such as Salonpas or IcyHot patches applied 2-3 times daily and if needed at bedtime x 3 weeks. If not better despite above measures may need to consider local steroid injection. Recurrent major depressive disorder, in partial remission 12/18/2021 Assessment & Plan (12/18/2021 10:36 PM EDT): She finds benefit from telephonic interactions with her psychotherapist once a month and is on the waiting list to get more frequent sessions per her report. Resolved Problems Problem Noted Date Diagnosed Date Resolved Date Class 1 obesity due to exces s calories with serious comorbidity and body mass index (BMI) of 31.0 to 31.9 in adult 07/23/2023 01/02/2025 Assessment & Plan (07/04/2024 4:25 PM EST): Continue diligent portion control. Limit concentrated sugars, saturated fats and calories in the diet. Keep well-hydrated. If unable to achieve expected goal consider formal dietary/nutritional support. Assessment & Plan (03/15/2024 8:48 PM EDT): Congratulations on losing 4 pounds from 174 on 12/10/2023 down to 170 today and keep it off. Continue diligent portion control. Limit concentrated sugars, saturated fats and calories in the diet. Keep well-hydrated. If unable to achieve expected goal consider formal dietary/nutritional support. Assessment & Plan (12/13/2023 10:29 PM EDT): Continue diligent portion control particularly in view of gaining 4 pounds from 170 on 08/27/2023 up to 174 today. Limit concentrated sugars, saturated fats and calories in the diet. Keep well-hydrated. If unable to achieve expected goal consider formal dietary/nutritional support. Assessment & Plan (08/27/2023 1:06 PM EST): Portion control. Limit concentrated sugars, saturated fats and calories in the diet. Keep well-hydrated. If unable to achieve expected goal consider formal dietary/nutritional support. Assessment & Plan (07/23/2023 11:38 PM EST): I reviewed with her need for diligent portion control particularly in view of 21 pounds weight gain from 149 lbs on 01/19/2023 up to 170 lbs today. Limit concentrated sugars, saturated fats and calories in the diet. Keep well-hydrated. If unable to achieve expected goal consider formal dietary/nutritional support. Bone pain 12/18/2021 01/02/2025 Assessment & Plan (07/23/2023 11:30 PM EST): Based on her description worse during the night and preventing her from sleeping needs to be evaluated for possible underlying etiology to make sure that there are no worrisome findings therefore I took the liberty of lab work and x-rays of most involved regions. She is asked to use warm packs and gentle massage in addition to topical NSAIDs Assessment & Plan (12/18/2021 10:38 PM EDT): Based on her description worse during the night and preventing her from sleeping needs to be evaluated for possible underlying etiology to make sure that there are no worrisome findings therefore I took the liberty of lab work and x-rays of most involved regions. She is asked to use warm packs and gentle massage in addition to topical products red NSAIDs carefully with food. NSAID long-term use 12/18/2021 09/01/19 Assessment & Plan (12/18/2021 10:40 PM EDT): Take the lowest dose, with least frequency, for shortest time. Remember to take it always with food. Favor topical over oral preparations. Encounters Date Type Department Care Team Description 05/05/2025 12:20 PM EDT Hospital Encounter [facility] [address] [place] [address] Citlali Rodrigez MD 04/26/2025 Orders Only [facility] [address] [place] [address] [place] [address] Citlali Rodrigez MD Vitamin D deficiency, unspecified (Primary Dx) 04/22/2025 Refill [facility] [address] [place] [address] Citlali Rodrigez MD Medication Refill from Last 3 Months Social History Tobacco Use Types Packs/Day Years Used Date Smoking Tobacco: Every Day Cigarettes Smokeless Tobacco: Never Tobacco Cessation:Ready to Q uit: Not Asked; Counseling Given: Not Answered Alcohol Use Standard Drinks/Week Comments Not Currently [...] Orientation Straight 03/31/2023 12 :05 PM EDT Last Filed Vital Signs Vital Sign Reading Time Taken Comments Blood Pressure 112/78 01/02/2025 3:50 PM EDT Pulse 94 01/02/2025 3:50 PM EDT Temperature 36.8 C (98.2 F) 06/27/2023 11:37 AM EST Respiratory Rate 18 06/27/2023 11:3 7 AM EST Oxygen Saturation 99% 01/02/2025 3:50 PM EDT Inhaled Oxygen Concentration - - Weight 74.8 kg (164 lb 12.8 oz) 01/02/2025 3:50 PM EDT Height 157.5 cm (5' 2 ) 01/02/2025 3:50 PM EDT Body Mass Index 30.14 01/02/2025 3:50 PM EDT Plan of Treatment Upcoming Encounters Date Type Department Care Team (Late st Contact Info) Description 06/15/2025 2:30 PM EST Office Visit [facility] [address] [place] [address] [place] [address] Citlali Rodrigez MD [address] [place] [address], [address] [place] [address] [email or web address] Health Maintenance Due Date Last Done Comments DEPRESSION SCREENING 1995 SMOKING Hx and SMOKELESS TOBACCO SCREENING 1996 HIV ONE-TIME SCREENING (18-65 YEARS) 2001 PAP SMEAR 2004 MAMMOGRAM 2023 TSH LEVEL 07/23/2023 07/23/2022, 12/19/2021 INFLUENZA VACCINE (#1) 2025 , 03/22/2024, 06/30/2023, Additional history exists COVID-19 VACCINE (4 - 2025- season) 2025 03/22/2024, 08/22/2022, 11/30/2020 SCREENING FOR DIABETES 01/04/2028 01/03/2025 Adult Td,Tdap Booster 07/29/2033 07/29/2023 , 09/16/2006, 05/22/2005 HEPATITIS C SCREENING Completed 03/14/2024 PNEUMOCOCCAL VACCINES (0-49 years) Completed 03/22/2024 HEPATITIS A VACCINES Aged Out No long er eligible based on patient's age to complete this topic HIB VACCINES Aged Out No longer eligi ble based on patient's age to complete this topic MENINGOCOCCAL VACCINES (ACWY) Aged Out No longer eligible based on patient's age to complete this topic MENINGOCOCCAL VACCINES (B) Aged Out N o longer eligible based on patient's age to complete this topic Medical Devices Not on file Procedures Procedure Name Priority Date/Time Associated Diagnosis Comments HEPATITIS C ANTIBODY, QUALITATIVE Routine 03/14/2024 9:55 AM EDT Systemic lupus erythematosus, unspecified SLE type, unspecified organ involvement status Need for hepatitis C screening test TSH WITH REFLEX Routine 07/23/2022 9:55 AM EST Acquired hypothyroidism from Last 3 Months or Most Recently Relevant to Health Maintenance Results * Hepatitis C antibody, qualitative (03/14/2024 9:55 AM EDT) HCV NON-REACTIV E NON-REACTI VE [facility] Blood 03/14/2024 9:55 AM EDT 03/14/2024 10:08 AM EDT us Citlali Rodrigez MD LAB BLOOD ORDERABLES Fin al Result [address] [id number] * TSH with reflex (07/23/2022 9:55 AM EST) TSH 3.49 0.27 - 4.20 uIU/mL [facility] Blood 07/23/2022 9:55 AM EST 07/23/2022 10:02 AM EST us Citlali Rodrigez MD LAB BLOOD ORDERABLES Fin al Result [facility] [address] [place] [address] from Last 3 Months or Most Recently Relevant to Health Maintenance Insurance MEDICARE PART A & B [facility] CARE MEDICARE REPLACEMENT MEDICARE PART A & B [facility] CARE MEDICARE REPLACEMENT [id number] [place] [address] MEDICARE PART A & B [facility] C[facility] MEDICARE REPLACEMENT [address] [place] [address] MEDICARE PART A & B Member Subscriber Plan / Payer (Ef fective 2008-Present) Name:Yamini Fitzgerald Member ID:[id number] Relation to Subscriber:Self Name:Yamini Fitzgerald Subscriber ID:[id number] Payer ID:[id number] Group ID:Not on file Type:Medicare Address: Rev [address] ONE CARE MEDICARE REPLACEMENT [place] [address] [address] [place] [address] MEDICARE PART A & B Member Subscriber Plan / Payer (Ef fective 2008-Present) Name:Kayla Fitzgeraldbeth Member ID:[id number] Relation to Subscriber:Self Name:Kayla Fitzgeraldbeth Subscriber ID:[id number] Payer ID:[id number] Group ID:Not on file Type:Medicare Address: Rev [address] ONE CARE MEDICARE REPLACEMENT MEDICARE PART A & B ONE CARE MEDICARE REPLACEMENT MEDICARE PART A & B ONE CARE MEDICARE REPLACEMENT MEDICARE PART A & B [facility] ONE CARE MEDICARE REPLACEMENT MEDICARE PART A & B [facility] ONE CARE MEDICARE REPLACEMENT Care Teams Retail Manager In Training Relationship Specialty Start Date End Date Chari Rodriguez MD [address] [place] [id number] PCP - General Family Medicine 07/17/21 Additional Source Comments The information contained in this document represents components of the legal health record. It is not the complete legal health record.[facility]
--- OUTSIDE RECORDS SUMMARY | 2025-05-05 13:21 | XMS_ITS | Encounter Summary ---
Author Organization [employer] Address [address] [facility] [address] [place] [address] Care Team Providers Care Director Clinical Pharmacology Name Role Phone Chari Rodriguez MD Primary Care Provider [phone] Waqar Leung CNP Primary Care Provider [phone] Reason for Visit * Reason Comments Med Refill Encounter Details Date Type Department Care Team (Late st Contact Info) Description 10/27/2023 Refill [facility] MED & PEDS [address] [place], [place] [phone] Chari Rodriguez MD [address] [place], [place] [phone] Fibromyalgia; Sore of lower lip Social History [...] Description 05/18/2025 2:00 PM EST Clinical Support [facility] MED & PEDS [address] [place] [address] Thania Hawkins, ALON [address] [place] [address] documented as of this encounter Visit Diagnoses Diagnosis Fibromyalgia Unspecified myalgia and myositis Sore of lower lip documented in this encounter Additional Health Concerns Assessment Noted Time PHQ-9 Depression Total Score: 22 024 10:31 AM EST documented as of this encounter Care Teams Director Clinical Pharmacology Relationship Specialty Start Date End Date Chari Rodriguez MD [address] [place] [address] PCP - General Family Medicine 05/19/12 05/03/25 Waqar Leung CNP [address] [place] [address] PCP - General Family Medicine 05/04/25 documented as of this encounter
--- OUTSIDE RECORDS SUMMARY | 2025-05-05 13:21 | XMS_ITS | Data Portability ---
Author Organization [employer] [facility], [facility] Address [address] [place] [phone] Care Team Providers Care Family Engagement Specialist Name Role Phone Unavailable OTHER HIM [facility] OTHER Assessment No assessment recorded. Plan of Treatment Reminders Order Date Submit Date Provider Last Modified By Organization Details Last Modified Time Details Appointments None recorded. Lab None recorded. Referral None recorded. Procedures None recorded. Surgeries None recorded. Imaging None recorded. Medication Orders ondansetron 4 mg disintegrat ing tablet 2023 024 [email or web address] Not available 15:45:16 ondansetron 4 mg disintegrat ing tablet 2023 024 [id number], [address] [facility], [place], [address], 4 15:45:17 Patient TargetsNo targets recorded. Patient [...] blood by Pulse oximetry Heart rate Systolic And Diastolic Provider Name and Address Organization Details Last Updated DateTime 4 16 /min 98 % 98 % 86 /min 138/76 mm[Hg] Not Available [facility] - production 4 [...] Diagnosis SNOMED-CT Code Diagnosis ICD10 Code Diagnosis IMO Codes Diagnosis Note [id number] Elisha Valenzuela MD Main - [facility] [address] [place] [phone] 12/04/2023 15:42:51 12/04/2023 21:26:19 Nausea [id number] R11.0 38 year old female with SLE, [...] assessment and plan as documented by the director of ancillary services. I provided real-time medical direction for this [...] Recorded Advance Directives Directive None Recorded Payers Insurance Date Sequence Insurance Name Policy Number Policy Martinez Covered Member ID Martinez Member ID Guarantor Name 12/04/2023 1 [facility] - DOS ON OR AFTER 2022 - DUAL ELIGIBLE - RESIDENTIAL OPTIONS AND ONE CARE (MEDICARE REPLACEMENT/AD VANTAGE - HMO) Yamini Ac [id number] Yamini Ac Notes Date Note Type Note Provider Name and Address Organization Details Recorded Time 12/04/2023 text/html HPI: Nurse is calling from [employer] Member has nausea times 2 days, no [...] .................. .................. .................. .................. .................. .................. ............... Sub Arc Operator Note From Yuriy Glass: Dispatched to the [...] is normal bowel movements no urinary symptoms. [facility] contacted and ordered 4mg zofran PO on [...] ............... Disposition: Fulfilled Elisha Valenzuela MD [address] [facility],[address], [place], [phone], [employer] [facility] 12/04/2023 15:57:49 OBGyn Episode No OBEpisode recorded.
--- OUTSIDE RECORDS SUMMARY | 2025-05-05 13:21 | XMS_ITS | Encounter Summary ---
Author Organization [employer] Address [address] [facility] [address] [place] [address] Care Team Providers Care Game Programmer Name Role Phone Chari Rodriguez MD Primary Care Provider [phone] Waqar Leung CNP Primary Care Provider [phone] Reason for Visit * Reason Onset Date Comments Med Refill 10/26/2023 Encounter Details Date Type Department Care Team ([facility] st Contact Info) Description 10/26/2023 Refill [facility] CH[facility] MED & PEDS [address] [place], [place] [phone] Chari Rodriguez MD [address] [place] [address] Sore of lower lip; Fibromyalgia Social History [...] Description 05/18/2025 2:00 PM EST Clinical Support [facility] MED & PEDS [address] [place] [address] Thania Hawkins, ALON [address] [place] [address] documented as of this encounter Visit Diagnoses Diagnosis Sore of lower lip Fibromyalgia Unspecified myalgia and myositis documented in this encounter Additional Health Concerns Assessment Noted Time PHQ-9 Depression Total Score: 22 024 10:31 AM EST documented as of this encounter Care Teams Game Programmer Relationship Specialty Start Date End Date Chari Rodriguez MD [address] [place] [address] PCP - General Family Medicine 05/19/12 05/03/25 Waqar Leung CNP [address] [place] [address] PCP - General Family Medicine 05/04/25 documented as of this encounter
--- OUTSIDE RECORDS SUMMARY | 2025-05-05 13:21 | XMS_ITS | Encounter Summary ---
Author Organization [employer] Address [address] [facility] 7 [place] [address] Care Team Providers Care Supply Requirements Officer Name Role Phone Chari Rodriguez MD Primary Care Provider Waqar Leung CNP Primary Care Provider [phone] Encounter Details Date Type Department Care Team (Late Contact Info) Description 09/01/2022 Orders Only [facility] MED & PEDS [address] [place] [address] Chari Rodriguez MD [address] [place] [address] Social History Tobacco Use Types Packs/Day Years [...] Description 05/18/2025 2:00 PM EST Clinical Support [facility] MED & PEDS [address] [place] [address] Thania Hawkins RN [address] [place] [address] documented as of this encounter Visit Diagnoses Not on filedocumented in this encounter Additional Health Concerns Assessment Noted Time PHQ-9 Depression Total Score: 19 08/19/ 023 10:15 AM EST documented as of this encounter Care Teams Supply Requirements Officer Relationship Specialty Start Date End Date Chari Rodriguez MD [address] [place] [id number] PCP - General Family Medicine 05/19/12 05/03/25 Waqar Leung CNP [address] [facility] [place] [address] PCP - General Family Medicine 05/04/25 documented as of this encounter
[2025-05-05 14:31] LABS: Alanine Aminotransferase 13 U/L (0-31); Albumin Level 4.0 g/dL (3.5-5.0); Alkaline Phosphatase 77 U/L (39-117); Anion Gap 11 (12-20); Aspartate Amino Transferase 23 U/L (5-31); Blood Urea Nitrogen 6 mg/dL (9-16); Calcium 9.0 mg/dL (8.4-10.2); Carbon Dioxide 26 mmol/L (22-29); Chloride 107 mmol/L (96-108); Cholesterol 183 mg/dL (<200); Estimated Glomerular Filt Rate > 60; HDL Cholesterol 32 mg/dL (>40); Potassium 3.7 mmol/L (3.3-5.1); Sodium 140 mmol/L (135-145); Total Protein 7.0 g/dL (6.5-8.0); Triglycerides 149 mg/dL (<150)
== END 2025-05-05 11:45 | disposition home or self-care (01) ==
LOC: HO.CHCLDS 11:44
PROVIDERS: Visit Provider Student in an Organized Health Care Education/Training Program
DX: E03.9 Hypothyroidism, unspecified (principal)
CPT/HCPCS: 36415; 80048; 80061; 80076; 84443